=== PATIENT | male | born 1985 | race Caucasian/White ===

== ENCOUNTER 2016-11-26 12:20 | Inpatient (IN) | payer BC ==
[~2016-11-26] VITALS: Ht 185.4 cm; Wt 84.0 kg
[2016-11-26] VITALS (15 sets, daily range): BP systolic 101–142; BP diastolic 63–90; PULSE 54–78; RESP 14–24; Ht 185.4 cm; Wt 84.0 kg
--- NOTE | 2016-11-26 08:29 | HP ---
Date/Time of Note Date/Time of Note DATE: 11/26/16 TIME: 08:19 Assessment/Plan VTE Prophylaxis VTE Prophylaxis Intervention: SCD's Assessment/Plan Chief Complaint/Hosp Course Rectal cancer Ileostomy Problems: Assessment/Plan Mr. Vasquez is a 31 y/o with a history of rectal cancer, s/p chemotherapy/ radiation therapy, and surgical resection who presents to [facility] today to have his ileostomy reversed. Informed consent obtained. HPI/ROS Admit Date/Time Admit Date/Time 11/26/16 Hx of Present Illness Mr. Vasquez is a 31 y/o who was diagnosed with rectal cancer in April of 2015. He subsequently underwent neoadjuvant chemotherapy and radiation that was completed in July of 2015. Then, on 12/02/2015, he underwent a low anterior resection of his rectum with a primary colo-rectal anastomosis and diverting loop ileostomy. Subsequent to this, he underwent adjuvant chemotherapy. Following his surgery a year ago, he has had several bouts of small bowel obstructions all of which resolved without surgical intervention. He has now completed chemotherapy and he presents to have his diverting ileostomy closed. ROS Constitutional: improved, no complaints Eyes: no complaints ENT: no complaints Respiratory: no complaints Cardiovascular: no complaints Gastrointestinal: no complaints Genitourinary: no complaints Musculoskeletal: no complaints Skin: no complaints Neurologic: no complaints Endocrine: no complaints Lymphatic: no complaints Psychological: nl mood/affect, no complaints Immunologic: no complaints PMH/Family/Social Past Medical History Medical History: other (rectal cancer) Past Surgical History Past Surgical Hx: other (see HPI) Family History Significant Family History: no pertinent family hx Social History with 3 children Alcohol Use: none Smoking Status: Former smoker Drug Use: none Exam/Review of Systems Exam Constitutional: alert, oriented, well developed Psych: nl mood/affect, no complaints Head: atraumatic, normocephalic Eyes: EOMI, PERRL, nl conjunctiva, nl sclera ENMT: mucosa pink and moist, nl external ears & nose, nl lips & teeth, nl nasal mucosa & septum Neck: non-tender, supple Respiratory: clear to auscultation, normal air movement Cardiovascular: nl pulses, regular rate and rhythm Gastrointestinal: nl liver, spleen, non-tender, other (RLQ ileostomy), soft, surgical scars (Pfannenstiel incision is well healed, no hernia) Musculoskeletal: nl extremities to inspection Extremities: normal pulses 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
[~2016-11-26 12:20] MED LIST: CEFAZOLIN 1 GM INJ ONE; DOCU-144 PO; FER325 PO; PERCOCET PO; metroNIDAZOLE 500 MG/100 ML NS IVPB ONE
[2016-11-26] MEDS ORDERED: MIDAZOLAM 1 MG/ML 2 ML INJ ONE (13:13)
[2016-11-26] MEDS ORDERED: LIDOCAINE 2% (SDV) 5 ML INJ ONE (13:13)
[2016-11-26] MEDS ORDERED: PROPOFOL 20 ML ONE (13:13)
[2016-11-26] MEDS ORDERED: ROCURONIUM 50 MG INJ ONE (13:13)
[2016-11-26] MEDS ORDERED: GLYCOPYRROLATE 0.4 MG INJ ONE (13:13)
[2016-11-26] MEDS ORDERED: NEOSTIGMINE 3 MG/3 ML SYRINGE ONE (13:13)
[2016-11-26] MEDS ORDERED: FENTAnyl 50 MCG/ML VIAL ONE ×2 (13:13→16:03)
[2016-11-26] MEDS ORDERED: CEFAZOLIN 2 GM/50 ML (PMX) 50 ML IVPB SCH (14:00)
[2016-11-26] MEDS ORDERED: Metronidazole 500 MG in NS 100 ML IVPB SCH (14:00)
[2016-11-26] MEDS ORDERED: OXYCODONE/ACETAMINOPHEN (5/325) TAB PO PRN ×2 (15:30)
[2016-11-26] MEDS ORDERED: EPHEDrine SULFATE 50 MG/5 ML SYG IV PRN (15:30)
[2016-11-26] MEDS ORDERED: HYDROmorphONE (0.2 MG/ML) 10ML SYG IV PRN ×3 (15:30)
[2016-11-26] MEDS ORDERED: MEPERIDINE 25 MG INJ IV PRN (15:30)
[2016-11-26] MEDS ORDERED: METOCLOPRAMIDE 10 MG INJ IV PRN (15:30)
[2016-11-26] MEDS ORDERED: DIPHENHYDRAMINE 50 MG INJ IV PRN (15:30)
[2016-11-26] MEDS ORDERED: ONDANSETRON 4 MG INJ IV PRN ×2 (15:30→17:00)
[2016-11-26] MEDS ORDERED: DEXAMETHASONE 4 MG/ML 1 ML INJ ONE (16:04)
[2016-11-26] MEDS ORDERED: LIDOCAINE 1% (MPF) 30 ML INJ ONE (16:13)
[2016-11-26] MEDS ORDERED: BUPIVACAINE 0.5%/EPI (SDV) 30 ML INJ ONE (16:13)
--- NOTE | 2016-11-26 16:44 | OPR ---
Date/Time of Note Date/Time of Note DATE: 11/26/16 TIME: 16:38 Operative Report Procedure Date: Nov 26, 2016 Preoperative Diagnosis Rectal cancer, Ileostomy Postoperative Diagnosis (same) Operation Performed Ileostomy closure Surgeon: ALESSIA PAIZ MD Co-Surgeon: RASHEEDA SANCHEZ M.D. Anesthesia: general Anesthesiologist: GLENDY ALCANTAR Estimated Blood Loss: 0 - 10 ml's Specimens Ileostomy Complications: None Complications None Pt Condition Post Procedure: stable Disposition: PACU Operative\Procedure Findings RLQ loop ileostomy ALESSIA PAIZ MD Nov 26, 2016 16:44
[2016-11-26] MEDS ORDERED: ACETAMINOPHEN 1000MG/100ML IV 100 ML IVPB SCH (17:00)
[2016-11-26] MEDS ORDERED: KETOROLAC 30 MG INJ IV SCH (17:00)
[2016-11-26] MEDS ORDERED: CEFTRIAXONE 1 GM/50 ML (PMX) 50 ML IVPB SCH ×2 (17:00→21:00)
[2016-11-26 17:09] LABS: ADD SCAN DIFF NO
[2016-11-26 17:11] LABS: BASOPHILS % 0.2 % (0.0-2.0); EOSINOPHILS # 0.1 10^3/ul (0.0-0.5); EOSINOPHILS % 1.9 % (0.0-7.0); HEMATOCRIT 41.5 % (42.0-52.0); HEMOGLOBIN 13.6 g/dl (14.0-18.0); LYMPHOCYTES # 0.9 10^3/ul (0.8-2.9); LYMPHOCYTES % 14.9 % (15.0-51.0); MEAN CORPUSCULAR HEMOGLOBIN 29.8 pg (29.0-33.0); MEAN CORPUSCULAR HGB CONC 32.8 g/dl (32.0-37.0); MEAN CORPUSCULAR VOLUME 90.8 fl (82.0-101.0); MEAN PLATELET VOLUME 10.1 fl (7.4-10.4); MONOCYTE # 0.3 10^3/ul (0.3-0.9); MONOCYTES % 4.3 % (0.0-11.0); NEUTROPHIL # 4.9 10^3/ul (1.6-7.5); NEUTROPHILS % 78.5 % (39.0-77.0); PLATELET COUNT 154 10^3/UL (140-415); RED BLOOD COUNT 4.57 10^6/ul (4.70-6.10); RED CELL DISTRIBUTION WIDTH 12.5 % (11.5-14.5); WHITE BLOOD COUNT 6.2 10^3/ul (4.8-10.8)
[2016-11-26 17:31] LABS: CREATININE 1.04 mg/dl (0.61-1.24)
[2016-11-26 17:33] LABS: CALCIUM 8.4 mg/dl (8.4-10.2); POTASSIUM 3.3 mmol/L (3.5-5.1)
[2016-11-26] MEDS: HYDROmorphONE 1 MG/ML SYG IV PRN (19:10)
--- NOTE | 2016-11-26 19:17 | OPR ---
DATE OF OPERATION: 11/26/2016 PREOPERATIVE DIAGNOSES: 1. Rectal cancer. 2. Ileostomy. POSTOPERATIVE DIAGNOSES: 1. Rectal cancer. 2. Ileostomy. OPERATION PERFORMED: Ileostomy closure with resection and anastomosis. SURGEON: Dr. Alessia Cool MD POWDER SHOVELER: Stew Hartmann MD; ANESTHESIOLOGIST: Nancy Vasqeuz CRNA INDICATIONS FOR PROCEDURE: Mr. Vasquez is a 31-year-old gentleman who was diagnosed with rectal cancer in 2014. He subsequently underwent neoadjuvant chemotherapy and radiation, and then in November 2015, he underwent a low anterior resection of his rectum with primary colorectal anastomosis and diverting ileostomy. He subsequently underwent adjuvant chemotherapy and he now presents for ileostomy closure. Prior to his surgery, he underwent a Gastrografin enema , which revealed a patent and nonleaking colorectal anastomosis. Informed consent was obtained prior to the procedure. PROCEDURE IN DETAIL: The patient was brought to the operating room and placed in the supine position on the operating table. Next, after successful administration of general endotracheal anesthesia, the patient's right lower quadrant ileostomy appliance was removed and the proximal limb of bowel was closed using a running 2-0 silk suture. Next, the patient's anterior abdominal wall was prepped and draped in the usual sterile fashion. Following a surgical timeout, as well as administration of perioperative antibiotics, a circular incision was made at the mucocutaneous junction around the right lower quadrant ileostomy. Next, the 2 limbs of bowel were then carefully mobilized from the subcutaneous tissues using sharp dissection, and then they were freed from the anterior and posterior rectus sheath. Once this was done, healthy limbs of proximal and distal ileum were easily passed through this former right lower quadrant ileostomy site. Next, 2 sterile towels were used to drape the abdomen and the mesentery between both points, at the desired location to create the enteroenterostomy, was divided using the LigaSure tissue sealing device. At this location on each of the proximal and distal limbs of bowel, an enterotomy was created, and a 75-mm MARAL stapler was utilized to create a [id number] anastomosis between the antimesenteric borders of the proximal and distal limbs of ileum. Next, the ileostomy was resected and the enterotomy was closed another firing of the 75- mm GI stapler. Prior to doing so, however, empty ring forceps were utilized to examine the anastomosis internally and this was found to have healthy mucosa up to, and including, the anastomosis and no active bleeding. Once a second firing of the MARAL stapler was complete, the ileostomy was passed off the surgical as a surgical specimen and labeled "ileostomy." Next, the closed ileum was then dropped into the patient's abdomen, through the opening in the abdominal wall, and we proceeded to close the abdominal wall. This was done by closing both the anterior and posterior rectus sheaths, using interrupted 0 Vicryl sutures. The posterior rectus sheath was closed longitudinally, while the anterior rectus sheath was closed transversely. Next, the subcutaneous tissues were reapproximated using interrupted 2-0 Vicryl suture, the skin edges were reapproximated using a running 4-0 Monocryl stitch, and then Dermabond skin adhesive. Now, the procedure was complete, all needle, sponge and instrument counts were correct, and the patient was awoken from anesthetic. He was extubated in the operating room without complication, transferred to the recovery room in stable condition. By the completion of the procedure, the patient received 500 mL crystalloid. ESTIMATED BLOOD LOSS: 10 mL. COMPLICATIONS: None. Dictated By: ALESSIA MIRANDA/DARLEEN Conf#: [id number] DID#: [id number] PETR
[2016-11-26] MEDS: FAMOTIDINE 20 MG INJ IV SCH (21:14)
[2016-11-26] MEDS: D5-NS + KCL 20 MEQ 1,000 ML IV SCH (21:14)
[2016-11-26] MEDS: KETOROLAC 30 MG INJ IV SCH (21:14)
[2016-11-26] MEDS: metroNIDAZOLE 500 MG/NS (PMX) 100 ML IVPB SCH (22:22)
[2016-11-26] MEDS: ACETAMINOPHEN 1000MG/100ML IV 100 ML IVPB SCH (23:48)
[2016-11-27] MEDS: D5-NS + KCL 20 MEQ 1,000 ML IV SCH ×3 (00:44→10:19)
[2016-11-27] MEDS: KETOROLAC 30 MG INJ IV SCH ×4 (02:50→20:00)
[2016-11-27] MEDS: ACETAMINOPHEN 1000MG/100ML IV 100 ML IVPB SCH ×4 (05:09→23:00)
[2016-11-27 06:10] LABS: ADD SCAN DIFF NO
[2016-11-27] MEDS: metroNIDAZOLE 500 MG/NS (PMX) 100 ML IVPB SCH ×2 (06:15→14:51)
[2016-11-27] MEDS: ENOXAPARIN 40 MG/0.4 ML SYG SC SCH (06:22)
[2016-11-27 06:37] LABS: CALCIUM 8.1 mg/dl (8.4-10.2); CREATININE 0.96 mg/dl (0.61-1.24); POTASSIUM 3.8 mmol/L (3.5-5.1)
[2016-11-27 06:38] LABS: ABNORMAL IP MESSAGE 1; BASOPHILS % 0.1 % (0.0-2.0); HEMOGLOBIN 12.7 g/dl (14.0-18.0); RED CELL DISTRIBUTION WIDTH 12.1 % (11.5-14.5)
[2016-11-27 06:45] LABS: HEMATOCRIT 37.6 % (42.0-52.0); LYMPHOCYTES # 0.5 10^3/ul (0.8-2.9); LYMPHOCYTES % 6.6 % (15.0-51.0); MEAN CORPUSCULAR HEMOGLOBIN 30.4 pg (29.0-33.0); MEAN CORPUSCULAR HGB CONC 33.8 g/dl (32.0-37.0); MEAN PLATELET VOLUME 10.7 fl (7.4-10.4); MONOCYTE # 0.6 10^3/ul (0.3-0.9); MONOCYTES % 8.4 % (0.0-11.0); NEUTROPHIL # 6.1 10^3/ul (1.6-7.5); NEUTROPHILS % 84.8 % (39.0-77.0); PLATELET COUNT 171 10^3/UL (140-415); RED BLOOD COUNT 4.18 10^6/ul (4.70-6.10); WHITE BLOOD COUNT 7.2 10^3/ul (4.8-10.8)
[2016-11-27 07:21] VITALS: BP 98/56; RESP 18
[2016-11-27] MEDS ORDERED: HYDROCODONE/APAP (5/325) TAB PO PRN (08:00)
--- NOTE | 2016-11-27 08:07 | PN ---
Date/Time of Note Date/Time of Note DATE: 11/27/16 TIME: 08:03 Assessment/Plan VTE Prophylaxis VTE Prophylaxis Intervention: ambulation, LMWH, SCD's Lines/Catheters IV Catheter Type (from Nrsg): Peripheral IV Assessment/Plan Chief Complaint/Hosp Course Rectal cancer Ileostomy Problems: Assessment/Plan Mr. Vasquez is POD#1 s/p ileostomy closure. He is doing well. Awaiting return of bowel function. 1. Encourage ambulation 2. Advance diet as tolerated 3. Continue IV Tylenol/Toradol, add Oxycodone for breakthrough pain 4. Likely discharge home in 1-2 days Subjective 24 Hr Interval Summary Mr. Vasquez reports that he is doing well this morning. He has incisional pain controlled with IV Toradol/Tylenol/Dilaudid. He denies nausea and is tolerating a clear liquid diet. He denies any flatus or BM thus far. Pain Control: well controlled Exam/Review of Systems Vital Signs Vitals Vital Signs Date Time Temp Pulse Resp B/P Pulse Ox O2 Delivery O2 Flow Rate FiO2 11/27/16 07:21 97.8 60 18 98/56 98 11/26/16 17:58 Room Air 11/26/16 17:53 2.0 Intake and Output 11/26/16 11/26/16 11/27/16 15:00 23:00 07:00 Intake Total 550 ml 1600 ml Output Total 20 ml 550 ml Balance 530 ml 1050 ml Exam Constitutional: alert, oriented Gastrointestinal: soft, surgical scars (RLQ incision is healing well), tender ( mild, at RLQ incision) Results Result Diagram: 11/27/16 0540 11/27/16 0540 ALESSIA PAIZ MD Nov 27, 2016 08:07
[2016-11-27] MEDS: FAMOTIDINE 20 MG INJ IV SCH ×2 (08:45→22:28)
[2016-11-27] MEDS: oxyCODONE 5 MG TAB PO PRN (10:20)
[2016-11-27 20:27] VITALS: BP 131/68; RESP 16
[2016-11-28] MEDS: HYDROmorphONE 1 MG/ML SYG IV PRN (00:22)
[2016-11-28] MEDS: D5-NS + KCL 20 MEQ 1,000 ML IV SCH (00:27)
[2016-11-28] MEDS: oxyCODONE 5 MG TAB PO PRN (01:08)
[2016-11-28] MEDS: KETOROLAC 30 MG INJ IV SCH ×3 (02:39→14:00)
[2016-11-28 05:37] LABS: ADD SCAN DIFF NO
[2016-11-28 05:39] LABS: BASOPHILS % 0.2 % (0.0-2.0); EOSINOPHILS # 0.1 10^3/ul (0.0-0.5); EOSINOPHILS % 1.3 % (0.0-7.0); HEMATOCRIT 34.6 % (42.0-52.0); HEMOGLOBIN 11.5 g/dl (14.0-18.0); LYMPHOCYTES # 0.9 10^3/ul (0.8-2.9); LYMPHOCYTES % 19.3 % (15.0-51.0); MEAN CORPUSCULAR HEMOGLOBIN 30.1 pg (29.0-33.0); MEAN CORPUSCULAR HGB CONC 33.2 g/dl (32.0-37.0); MEAN CORPUSCULAR VOLUME 90.6 fl (82.0-101.0); MEAN PLATELET VOLUME 10.7 fl (7.4-10.4); MONOCYTE # 0.5 10^3/ul (0.3-0.9); MONOCYTES % 10.1 % (0.0-11.0); NEUTROPHIL # 3.1 10^3/ul (1.6-7.5); NEUTROPHILS % 69.1 % (39.0-77.0); PLATELET COUNT 137 10^3/UL (140-415); RED BLOOD COUNT 3.82 10^6/ul (4.70-6.10); RED CELL DISTRIBUTION WIDTH 12.3 % (11.5-14.5); WHITE BLOOD COUNT 4.5 10^3/ul (4.8-10.8)
[2016-11-28] MEDS: ACETAMINOPHEN 1000MG/100ML IV 100 ML IVPB SCH (05:42)
[2016-11-28 06:04] LABS: POTASSIUM 3.4 mmol/L (3.5-5.1)
[2016-11-28 06:07] LABS: CREATININE 1.12 mg/dl (0.61-1.24)
[2016-11-28] MEDS: ENOXAPARIN 40 MG/0.4 ML SYG SC SCH (07:34)
[2016-11-28 07:59] VITALS: BP 97/61; RESP 14
[2016-11-28] MEDS: FAMOTIDINE 20 MG INJ IV SCH (08:33)
--- NOTE | 2016-11-28 08:37 | PN ---
Date/Time of Note Date/Time of Note DATE: 11/28/16 TIME: 08:34 Assessment/Plan VTE Prophylaxis VTE Prophylaxis Intervention: ambulation, LMWH, SCD's Lines/Catheters IV Catheter Type (from Nrsg): Peripheral IV Assessment/Plan Assessment/Plan 31YO Man POD2 reversal of DLI doing well. Been OOB, urinating and passing gas. Pain controlled. Tolerating clear. Denies CP/SOB/F/C/NVD. To advance to full liquids, D/C IVF. Pauline and Toradol for pain. Hopeful D/C in AM. Subjective 24 Hr Interval Summary Free Text/Dictation Pt states he's OK. Passing gas, urinating, no BM. Pain controlled, is ambulating. No CP/SOB/F/C/NVD Constitutional: no complaints Respiratory: no complaints Cardiovascular: no complaints Gastrointestinal: pain Exam/Review of Systems Vital Signs Vitals Vital Signs Date Time Temp Pulse Resp B/P Pulse Ox O2 Delivery O2 Flow Rate FiO2 11/28/16 07:59 98.1 60 14 97/61 99 11/26/16 17:58 Room Air 11/26/16 17:53 2.0 Intake and Output 11/27/16 11/27/16 11/28/16 15:00 23:00 07:00 Intake Total 100 ml 1000 ml 400 ml Output Total 240 ml Balance 100 ml 760 ml 400 ml Exam Constitutional: alert, oriented Respiratory: clear to auscultation Cardiovascular: regular rate and rhythm Gastrointestinal: soft, tender (Appropriate at wound, Wound C/D/I) Results Result Diagram: 11/28/16 0445 11/28/16 0445 Results 24 hrs Laboratory Tests Test 11/28/16 04:45 White Blood Count 4.5 #L Red Blood Count 3.82 L Hemoglobin 11.5 L Hematocrit 34.6 L Mean Corpuscular Volume 90.6 Mean Corpuscular Hemoglobin 30.1 Mean Corpuscular Hemoglobin Concent 33.2 Red Cell Distribution Width 12.3 Platelet Count 137 L Mean Platelet Volume 10.7 H Neutrophils % 69.1 Lymphocytes % 19.3 Monocytes % 10.1 Eosinophils % 1.3 Basophils % 0.2 Nucleated Red Blood Cells % 0.0 Neutrophils # 3.1 Lymphocytes # 0.9 Monocytes # 0.5 Eosinophils # 0.1 Basophils # 0.0 Nucleated Red Blood Cells # 0.0 Sodium Level 138 Potassium Level 3.4 L Chloride Level 106 Carbon Dioxide Level 25 Anion Gap 10 Blood Urea Nitrogen 13 Creatinine 1.12 Glucose Level 100 Calcium Level 8.0 L Medications Medications Current Medications Hydromorphone HCl (Dilaudid) 0.5 mg Q2 PRN IV BREAKTHROUGH PAIN Last administered on 11/28/16 00:22; Admin Dose 0.5 MG; Start 11/26/16 at 17:00 Ondansetron HCl (Zofran Inj) 4 mg Q6H PRN IV NAUSEA AND/OR VOMITING; Start at 17:00 Famotidine 20 mg 20 mg Q12 IV Last administered on 11/27/16 22:28; Admin Dose 20 MG; Start 11/26/16 at 21:00 Potassium Chloride/Dextrose/ Sod Cl (D5-NS + KCl 20 Meq) 1,000 ml @ 50 mls/hr Q20H IV Last administered on 11/28/16 00:27; Admin Dose 50 MLS/HR; Start 11/26 at 16:44 Enoxaparin Sodium 40 mg 40 mg DAILY@07 SC Last administered on 11/28/16 07:34 ; Admin Dose 40 MG; Start 11/27/16 at 07:00 Acetaminophen (Ofirmev 1000mg/ 100ml Iv) 100 ml @ 400 mls/hr Q6H IVPB Last administered on 11/28/16 05:42; Admin Dose 400 MLS/HR; Start 11/26/16 at 23:00 Ketorolac Tromethamine (Toradol) 30 mg Q6H IV Last administered on 11/28/16 02 :39; Admin Dose 30 MG; Start 11/26/16 at 20:00; Stop 12/01/16 at 19:59 Oxycodone HCl (Roxicodone) 5 mg Q4H PRN PO BREAKTHROUGH PAIN Last administered on 11/28/16 01:08; Admin Dose 5 MG; Start 11/27/16 at 08:30 RASHEEDA SANCHEZ M.D. Nov 28, 2016 08:37
[2016-11-28] MEDS ORDERED: HYDROCODONE/APAP (5/325) TAB PO PRN ×3 (09:00)
== END 2016-11-28 17:30 | disposition home or self-care (01) | DRG 331 ==
LOC: REC 12:20 → EDSTATUS 14:00 → MS2 18:30
PROVIDERS: ADMIT Colon & Rectal Surgery; ATTEND Colon & Rectal Surgery
PROC: 0DBB0ZZ Excision of Ileum, Open Approach (ICD-10-PCS; principal; 2016-11-26 14:00)
DX: Z43.2 Encounter for attention to ileostomy (principal); Z85.048 Personal history of other malignant neoplasm of rectum, rectosigmoid junction, and anus; Z92.21 Personal history of antineoplastic chemotherapy; Z92.3 Personal history of irradiation
CPT/HCPCS: 80048; 85025; 88307; J0131; J0690; J0696; J1100; J1170; J1200; J1650; J1885; J2175; J2250; J2405; J2710; J3010; J3480

== ENCOUNTER 2016-12-10 06:04 | Inpatient (IN) | payer BC ==
[~2016-12-10] VITALS: Ht 177.8 cm; Wt 78.0 kg
[2016-12-10] MEDS ORDERED: SOD CHLORIDE 0.9% 1,000 ML IV STA (06:22)
[2016-12-10] MEDS ORDERED: morphine 4 MG/ML VIAL IV STA (06:22)
[2016-12-10] MEDS ORDERED: FAMOTIDINE 20 MG INJ IV STA (06:22)
[2016-12-10] MEDS ORDERED: ONDANSETRON 4 MG INJ IV STA (06:22)
[2016-12-10] MEDS ORDERED: HYDROmorphONE 1 MG/ML SYG IV STA ×2 (06:57→08:04)
[2016-12-10 07:00] LABS: ADD SCAN DIFF NO
[2016-12-10] MEDS ORDERED: SOD CHLORIDE 0.9% 100 ML ONE (07:01)
[2016-12-10] MEDS ORDERED: IOHEXOL 300MG/ML 150 ML BTL ONE (07:01)
[2016-12-10 07:14] LABS: BASOPHILS % 0.1 % (0.0-2.0); EOSINOPHILS % 0.2 % (0.0-7.0); HEMATOCRIT 44.5 % (42.0-52.0); HEMOGLOBIN 14.9 g/dl (14.0-18.0); LYMPHOCYTES # 0.7 10^3/ul (0.8-2.9); MEAN CORPUSCULAR HEMOGLOBIN 29.4 pg (29.0-33.0); MEAN CORPUSCULAR HGB CONC 33.5 g/dl (32.0-37.0); MEAN CORPUSCULAR VOLUME 87.9 fl (82.0-101.0); MEAN PLATELET VOLUME 10.3 fl (7.4-10.4); MONOCYTE # 0.5 10^3/ul (0.3-0.9); MONOCYTES % 3.6 % (0.0-11.0); NEUTROPHIL # 12.3 10^3/ul (1.6-7.5); NEUTROPHILS % 90.7 % (39.0-77.0); PLATELET COUNT 249 10^3/UL (140-415); RED BLOOD COUNT 5.06 10^6/ul (4.70-6.10); RED CELL DISTRIBUTION WIDTH 12.5 % (11.5-14.5); WHITE BLOOD COUNT 13.5 10^3/ul (4.8-10.8)
[2016-12-10 07:21] LABS: INR 0.96; PROTIME 12.8 Sec (12.2-14.2)
[2016-12-10 07:22] LABS: PARTIAL THROMBOPLASTIN TIME 25.2 Sec (25.0-35.0)
[2016-12-10 07:27] LABS: ALANINE AMINOTRANSFERASE 32 IU/L (13-69); ALBUMIN 4.6 g/dl (3.3-4.9); ALBUMIN/GLOBULIN RATIO 1.27; ALKALINE PHOSPHATASE 89 IU/L (42-121); ANION GAP 15 (8-16); ASPARTATE AMINO TRANSFERASE 22 IU/L (15-46); BLOOD UREA NITROGEN 25 mg/dl (7-20); CALCIUM 9.9 mg/dl (8.4-10.2); CARBON DIOXIDE 20 mmol/L (21-31); CHLORIDE 105 mmol/L (97-110); CREATININE 1.13 mg/dl (0.61-1.24); GLUCOSE 168 mg/dl (70-220); POTASSIUM 3.2 mmol/L (3.5-5.1); SODIUM 137 mmol/L (135-144); TOTAL PROTEIN 8.2 g/dl (6.1-8.1)
--- NOTE | 2016-12-10 07:34 | RADRPT ---
PROCEDURE: CT Abdomen and Pelvis with contrast. CLINICAL INDICATION: Abdominal pain TECHNIQUE: CT scan of the abdomen and pelvis with contrast was performed utilizing axial tomograph ic images from the domes the diaphragm to the symphysis pubis. The patient was scanned post uncomp licated intravenous administration of 100 cc of Omnipaque-300. Coronal and sagittal reformatted tono ges were obtained from the axial source images. Images were reviewed on a high-resolution PACS works tation. One or more of the following dose reduction techniques were used: Automated exposure control, Adjust ment of the mA and/or kV according to patient size, and/or Use of iterative reconstruction technique . The total exam CTDI equals 9.75 mGy and the total exam DLP equals 606.68 mGy-cm. COMPARISON: CT abdomen and pelvis dated 07/19/2016 FINDINGS: The lung bases are clear . The liver is normal in size and contour. No focal intrahepatic masses are identified. There is no intra or extrahepatic biliary dilatation. The gallbladder is unremark able by CT criteria. The spleen, pancreas, and adrenal glands are unremarkable. The kidneys are symmetric in size and demonstrate normal enhancement. No hydronephrosis or hydroure ter is identified. No renal parenchymal mass is identified. The urinary bladder is unremarkable. There has been interval reversal of a right lower quadrant stoma. There are multiple mildly distende d fluid-filled loops of small bowel with narrowing of the distal ileum at the previous anastomosis s ite. There is fecalization of a loop of bowel just proximal to the anastomosis. Additional anastom otic suture material is seen at the anorectal junction. There is small free fluid in the pelvis. No intraperitoneal free air or abscess identified. No retroperitoneal, mesenteric, or inguinal adenopa thy is identified. The abdominal aorta and major branching vessels are normal in caliber. The osseous structures are u nremarkable. No significant subcutaneous soft tissue abnormality is identified. IMPRESSION: 1. Postsurgical changes from prior small bowel and colonic resection. There are multiple mildly dis tended fluid-filled loops of small bowel with narrowing of the distal ileum at the site of previous resection. There is fecalization of the small bowel loop just proximal to the anastomosis. Finding s are concerning for at least partial small bowel obstruction. 2. Small free fluid in the pelvis. 3. Interval reversal of right lower quadrant stoma. RPTAT: .Kristin Sparks MD, MD Date Time Electronically viewed and signed by .Kristin Sparks MD, MD on 12/10/2016 07:34 .G/
[2016-12-10 07:47] LABS: TROPONIN-I < 0.012 ng/ml (0.00-0.12)
[2016-12-10] MEDS ORDERED: POTASSIUM CHLORIDE 250 ML IVPB ONE (08:00)
[2016-12-10] MEDS ORDERED: PIPER-TAZO 3.375 GM IV (PMX) 100 ML IVPB STA (08:06)
[2016-12-10] MEDS ORDERED: metroNIDAZOLE 500 MG/NS (PMX) 100 ML IVPB STA (08:06)
[2016-12-10] MEDS ORDERED: SODIUM CHLORIDE 0.9% 1L BAG IV* STA (08:06)
--- NOTE | 2016-12-10 08:13 | ERA ---
ER Documentation Chief Complaint Date/Time DATE: 12/10/16 TIME: 08:08 Chief Complaint sp closure o colostomy 2 weeks ago, c/ abd pain, hx colon ca HPI This is a 31-year-old male who presents to the emergency room for evaluation of abdominal pain. This patient does have a history of colon cancer with previous resection, diverting loop ileostomy. This patient had a reanastomosis of his ileostomy done approximately 2 weeks ago by his general surgeon, Dr. Cool. He presents today for evaluation of abdominal pain which is been present for the past 2 hours. Patient localizes the pain over the incision site of his reanastomosis. He states he has been vomiting multiple times and states that his vomit was initially green in color. ROS All systems reviewed and are negative except as per history of present illness. Medications Home Meds No Active Prescriptions or Reported Meds Allergies Allergies: Coded Allergies: No Known Allergy (Unverified , 11/26/16) PMhx/Soc History of Surgery: Yes (colon ca resection-colostomy) Anesthesia Reaction: No Hx 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 Disorder: No Hx Respiratory Disorders: No Hx Cardiac Disorders: No Hx Psychiatric Problems: No Hx Miscellaneous Medical Probl: No Hx Alcohol Use: No Hx Substance Use: No Hx Tobacco Use: No Smoking Status: Current every day smoker Physical Exam Vitals Vital Signs Date Time Temp Pulse Resp B/P Pulse Ox O2 Delivery O2 Flow Rate FiO2 12/10/16 06:12 97.8 92 20 113/72 100 Physical Exam INITIAL VITAL SIGNS: Reviewed by me GENERAL: The patient is well developed and appropriate for usual state of health in no apparent distress HEENT: Pupils equal, round, and reactive to light. EOMI. There is no scleral icterus. NECK: C-spine is soft and supple, there is no meningismus. There is no cervical lymphadenopathy. LUNGS: Clear to auscultation bilaterally. There are no rales, wheezes or rhonchi. HEART: Regular rate and rhythm, no murmurs, clicks, rubs or gallops. ABDOMEN: Tender to palpation over the anastomosis incision site in the right lower quadrant. Mild guarding and rebound tenderness. Hyperactive bowel sounds noted in 2/4 quadrants EXTREMITIES: There is no peripheral cyanosis or edema. No focal swelling or erythema. NEUROLOGICAL: The patient moves all four extremities with 5/5 strength. Cranial nerves II - XII are intact. Normal gait. Alert and oriented SKIN: There is no apparent rash or petechiae. HEME/LYMPHATIC: There is no evidence of excessive bruising or lymphedema. PSYCHIATRIC: The patient does not appear anxious or depressed. Result Diagram: 12/10/1630 12/10/16 0630 Results 24 hrs Laboratory Tests Test 12/10/16 06:30 White Blood Count 13.510^3/ul Red Blood Count 5.0610^6/ul Hemoglobin 14.9g/dl Hematocrit 44.5% Mean Corpuscular Volume 87.9fl Mean Corpuscular Hemoglobin 29.4pg Mean Corpuscular Hemoglobin Concent 33.5g/dl Red Cell Distribution Width 12.5% Platelet Count 36350^3/UL Mean Platelet Volume 10.3fl Neutrophils % 90.7% Lymphocytes % 5.0% Monocytes % 3.6% Eosinophils % 0.2% Basophils % 0.1% Nucleated Red Blood Cells % 0.0/100WBC Neutrophils # 12.310^3/ul Lymphocytes # 0.710^3/ul Monocytes # 0.510^3/ul Eosinophils # 0.010^3/ul Basophils # 0.010^3/ul Nucleated Red Blood Cells # 0.010^3/ul Prothrombin Time 12.8Sec Prothrombin Time Ratio 1.0 INR International Normalized Ratio 0.96 Activated Partial Thromboplast Time 25.2Sec Sodium Level 137mmol/L Potassium Level 3.2mmol/L Chloride Level 105mmol/L Carbon Dioxide Level 20mmol/L Anion Gap 15 Blood Urea Nitrogen 25mg/dl Creatinine 1.13mg/dl Glucose Level 168mg/dl Lactic Acid Level 3.6mmol/L Calcium Level 9.9mg/dl Total Bilirubin 1.0mg/dl Direct Bilirubin 0.00mg/dl Indirect Bilirubin 1.0mg/dl Aspartate Amino Transf (AST/SGOT) 22IU/L Alanine Aminotransferase (ALT/SGPT) 32IU/L Alkaline Phosphatase 89IU/L Troponin I < 0.012ng/ml Total Protein 8.2g/dl Albumin 4.6g/dl Globulin 3.60g/dl Albumin/Globulin Ratio 1.27 Lipase 112U/L Current Medications Medications (Trade) Dose Ordered Sig/Jorge Route PRN Reason Start Time Stop Time Status Last Admin Dose Admin Sodium Chloride (NS) 1,000 ml @ 1,000 mls/hr Q1H STAT IV 12/10/16 06:22 12/10/16 07:21 DC 12/10/16 06:38 Morphine Sulfate (morphine) 4 mg ONCE STAT IV 12/10/16 06:22 12/10/16 06:23 DC 12/10/16 06:38 Ondansetron HCl (Zofran Inj) 4 mg ONCE STAT IV 12/10/16 06:22 12/10/16 06:23 DC 12/10/16 06:38 Famotidine (Pepcid Iv) 20 mg ONCE STAT IV 12/10/16 06:22 12/10/16 06:23 DC 12/10/16 06:38 Hydromorphone HCl 1 mg 1 mg ONCE STAT IV 12/10/16 06:57 12/10/16 06:58 DC 12/10/16 07:01 Sodium Chloride (NS) 100 ml @ ud STK-MED ONCE .ROUTE 12/10/16 07:01 12/10/16 07:02 DC 12/10/16 07:17 Iohexol 150 ml 150 ml STK-MED ONCE .ROUTE 12/10/16 07:01 12/10/16 07:02 DC 12/10/16 07:17 Potassium Chloride (KCl 40 MEQ/250 ML NS) 250 ml @ 62.5 mls/hr ONCE ONCE IVPB 12/10/16 08:00 12/10/16 11:59 12/10/16 08:02 Hydromorphone HCl (Dilaudid) 1 mg ONCE STAT IV 12/10/16 08:04 12/10/16 08:05 DC 12/10/16 08:09 Metoclopramide HCl (Reglan) 10 mg ONCE ONCE IV 12/10/16 08:30 12/10/16 08:31 12/10/16 08:08 Sodium Chloride 2420 ml 2,420 ml BOLUS OVER 2 HOURS STAT IV* 12/10/16 08:06 12/10/16 08:08 DC 12/10/16 08:10 Piperacillin Sod/ Tazobactam Sod 100 ml @ 200 mls/hr ONCE STAT IVPB 12/10/16 08:06 12/10/16 08:35 Metronidazole (Flagyl 500 Mg (Pmx)) 100 ml @ 100 mls/hr ONCE STAT IVPB 12/10/16 08:06 12/10/16 09:05 12/10/16 08:17 Procedures/MDM CT abdomen pelvis with IV contrast: 1. Postsurgical changes from prior small bowel and colonic resection. There are multiple mildly distended fluid-filled loops of small bowel with narrowing of the distal ileum at the site of previous resection. There is fecalization of the small bowel loop just proximal to the anastomosis. Findings are concerning for at least partial small bowel obstruction. 2. Small free fluid in the pelvis. 3. Interval reversal of right lower quadrant stoma. This 31-year-old male presents to the emergency room for evaluation of abdominal pain. This patient is approximately 2 weeks postop from a re- anastomosis of his ileostomy. When I evaluated this patient he was tender over his incision site. No signs of hernia were noted. Lab work was obtained including a CAT scan which did confirm my suspicion of bowel obstruction. This patient does have a white count of 14,000, and an increased lactic acid greater than 3. Blood cultures were obtained. This patient was started on Zosyn and Flagyl. He hemodynamically stable at this time, and has a mean arterial pressure greater than 65. He was given greater than 30 cc/kg of IV normal saline. His pain is controlled with Dilaudid, his nausea is controlled with Zofran and Reglan. I have contacted his general surgeon, and spoke with the covering physician Dr. mcmanus who states the patient can be admitted to the hospitalist. This patient had a nasogastric tube placed, he will be kept n.p.o. Potassium supplementation via IV. This patient will be admitted under the care of Dr. Chowdhury Critical Care: Time: 33 minutes Treatments/Evaluations: Close monitoring and treatment of unstable vital signs, cardiorespiratory, and neurologic status, while maintaining tight balance of fluid, respiratory, and cardiac interventions. Departure Diagnosis: Primary Impression: Small bowel obstruction Additional Impressions: SIRS (systemic inflammatory response syndrome) Hypokalemia Condition: KARINA Ortega DO Dec 10, 2016 08:13
[2016-12-10] MEDS ORDERED: DEXTROSE 5%-0.45% NACL 1,000 ML IV SCH (08:24)
[2016-12-10] MEDS ORDERED: METOCLOPRAMIDE 10 MG INJ IV ONE (08:30)
[2016-12-10] MEDS ORDERED: ACETAMINOPHEN 325 MG TAB PO PRN ×2 (08:30→09:30)
[2016-12-10] MEDS ORDERED: BISACODYL (EC) 5 MG TAB PO PRN (09:30)
[2016-12-10] MEDS ORDERED: ACETAMINOPHEN 650 MG SUPP PR PRN (09:30)
[2016-12-10] MEDS ORDERED: ONDANSETRON 4 MG INJ IV PRN (09:30)
[2016-12-10] MEDS ORDERED: morphine 2 MG INJ IV PRN (09:30)
[2016-12-10] MEDS ORDERED: METOCLOPRAMIDE 10 MG INJ IV PRN (09:30)
[2016-12-10] MEDS ORDERED: NACL 0.9% 3 ML SYG IV SCH (09:30)
[2016-12-10] MEDS ORDERED: DOCUSATE SODIUM 100 MG CAP PO PRN (09:30)
[2016-12-10] MEDS: LEVOFLOXACIN 500MG/D5W (PMX) 100 ML IVPB SCH (11:36)
[2016-12-10] MEDS: D5W-0.45 NACL + KCL 20 MEQ 1,000 ML IV SCH ×2 (12:10→22:36)
[2016-12-10] MEDS: metroNIDAZOLE 500 MG/NS (PMX) 100 ML IVPB SCH ×2 (14:28→22:37)
--- NOTE | 2016-12-10 14:44 | CONS ---
Date/Time of Note Date/Time of Note DATE: 12/10/16 TIME: 14:43 Assessment/Plan Assessment/Plan Chief Complaint/Hosp Course Mr. Vasquez is 2 weeks s/p closure of his ileostomy and he presents with 3 days of constipation and 1/2 day of abdominal pain, nausea and vomiting. He underwent a CT scan which is suspicious for an early SBO with the transition point at his ileo-ileostomy. Recommendations: 1. Admit for IVF, NPO, NGT 2. Recommend discontinuing antibiotics (no role in small bowel obstruction) 3. Patient to ambulate and move around as much has tolerated. Thank you for including me in the care of Mr. Vasquez. I will continue to follow him closely while hospitalized. Problems: Consultation Date/Type/Reason Admit Date/Time Date of Consultation: Dec 10, 2016 Type of Consultation: Colorectal Surgery Reason for Consultation Abdominal pain, small bowel obstruction Hx of Present Illness Mr. Vasquez is a 31 y/o with a history of rectal cancer s/p neoadjuvant chemotherapy/XRT, s/p low anterior resection with diverting loop ileostomy who is now 2 week s/p closure of his loop ileostomy. He did well after this surgery , but starting 3 days ago he began having "constipation" which he describes as having no significant bowel movements. Then, starting at 3 am this morning, he began having abdominal pains, nausea and vomiting. This was very similar to his previous episodes of small bowel obstruction. Previously, these episodes would resolve with conservative management. He currently reports nausea despite having a NGT in place. Constitutional: no complaints Eyes: no complaints ENT: no complaints Respiratory: no complaints Cardiovascular: no complaints Gastrointestinal: nausea, pain, vomiting Genitourinary: no complaints Musculoskeletal: no complaints Skin: no complaints Neurologic: no complaints Endocrine: no complaints Lymphatic: no complaints Psychological: nl mood/affect, no complaints Immunologic: no complaints Past Medical History Medical History: other (rectal cancer) Past Surgical History See HPI Past Surgical Hx: other Family History Significant Family History: no pertinent family hx Social History Alcohol Use: rarely Smoking Status: Current every day smoker Drug Use: none Exam/Review of Systems Vital Signs Vitals Vital Signs Date Time Temp Pulse Resp B/P Pulse Ox O2 Delivery O2 Flow Rate FiO2 12/10/16 06:12 97.8 92 20 113/72 100 Exam Constitutional: alert, oriented, well developed Psych: nl mood/affect, no complaints Head: atraumatic, normocephalic Eyes: EOMI, nl conjunctiva ENMT: nl external ears & nose, nl lips & teeth Neck: non-tender, supple Respiratory: clear to auscultation, normal air movement Cardiovascular: regular rate and rhythm Gastrointestinal: non-tender, soft, surgical scars (RLQ ileostomy closure site is healing well, no s/s of infection, no hernia) Musculoskeletal: nl extremities to inspection Extremities: normal pulses 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: 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 intact, nl mental status Results Result Diagram: 12/10/1662912/10/16629 Results 24 hrs Laboratory Tests Test 12/10/16 06:30 12/10/16 08:37 12/10/16 10:50 White Blood Count 13.5 #H Red Blood Count 5.06 # Hemoglobin 14.9 # Hematocrit 44.5 # Mean Corpuscular Volume 87.9 Mean Corpuscular Hemoglobin 29.4 Mean Corpuscular Hemoglobin Concent 33.5 Red Cell Distribution Width 12.5 Platelet Count 249 # Mean Platelet Volume 10.3 Neutrophils % 90.7 H Lymphocytes % 5.0 L Monocytes % 3.6 Eosinophils % 0.2 Basophils % 0.1 Nucleated Red Blood Cells % 0.0 Neutrophils # 12.3 H Lymphocytes # 0.7 L Monocytes # 0.5 Eosinophils # 0.0 Basophils # 0.0 Nucleated Red Blood Cells # 0.0 Prothrombin Time 12.8 Prothrombin Time Ratio 1.0 INR International Normalized Ratio 0.96 Activated Partial Thromboplast Time 25.2 Sodium Level 137 Potassium Level 3.2 L Chloride Level 105 Carbon Dioxide Level 20 L Anion Gap 15 Blood Urea Nitrogen 25 H Creatinine 1.13 Glucose Level 168 Lactic Acid Level 3.6 H 1.5 1.9 Calcium Level 9.9 Total Bilirubin 1.0 Direct Bilirubin 0.00 Indirect Bilirubin 1.0 Aspartate Amino Transf (AST/SGOT) 22 Alanine Aminotransferase (ALT/SGPT) 32 Alkaline Phosphatase 89 Troponin I < 0.012 Total Protein 8.2 H Albumin 4.6 Globulin 3.60 H Albumin/Globulin Ratio 1.27 Lipase 112 Medications Medications Current Medications Dextrose/Sodium Chloride 1,000 ml @ 80 mls/hr [id number] IV Last administered on 12/10/16 09:58; Admin Dose 80 MLS/HR; Start 12/10/16 at 08:24; Stop 12/10/16 at 20:53 Potassium Chloride/Dextrose/ Sod Cl (D5-1/2ns + KCl 20 Meq) 1,000 ml @ 75 mls/ hr [id number] IV Last administered on 12/10/16 12:10; Admin Dose 75 MLS/HR; Start 12/10/16 at 09:16 Ondansetron HCl (Zofran Inj) 4 mg Q6H PRN IV NAUSEA AND/OR VOMITING; Start at 09:30 Acetaminophen (Tylenol Tab) 650 mg Q6H PRN PO PAIN LEVEL 1-3 OR FEVER; Start at 09:30 Acetaminophen (Tylenol Supp) 650 mg Q6H PRN [place] PAIN LEVEL 1-3 OR FEVER; Start 12/10/16 at 09:30 Docusate Sodium (Colace) 100 mg Q12H PRN PO CONSTIPATION; Start 12/10/16 at 09: 30 Bisacodyl (Dulcolax) 5 mg DAILY PRN PO CONSTIPATION; Start 12/10/16 at 09:30 Pantoprazole (Protonix Iv) 40 mg DAILY@06 IV ; Start 12/11/16 at 06:00 Morphine Sulfate (morphine) 1 mg Q3H PRN IV PAIN LEVEL 1-3; Start 12/10/16 at 09:30 Morphine Sulfate (morphine) 2 mg Q3H PRN IV PAIN LEVEL 4-7; Start 12/10/16 at 09:30 Metoclopramide HCl 5 mg 5 mg Q6H PRN IV CONSTIPATION; Start 12/10/16 at 09:30 Levofloxacin/ Dextrose 100 ml @ 100 mls/hr Q24H IVPB Last administered on 12/10 11:36; Admin Dose 100 MLS/HR; Start 12/10/16 at 09:30 Metronidazole (Flagyl 500 Mg (Pmx)) 100 ml @ 100 mls/hr Q8 IVPB Last administered on 12/10/16 14:28; Admin Dose 100 MLS/HR; Start 12/10/16 at 14:00 ALESSIA PAIZ MD Dec 10, 2016 14:44
[2016-12-10] MEDS: morphine 2 MG INJ IV PRN ×3 (14:49→22:47)
--- NOTE | 2016-12-10 17:40 | HP ---
DATE OF ADMISSION: 12/10/2016 CONSULTANTS: 1. Dr. Cool, colorectal surgeon. 2. Dr. Faye, rattle leak and squeak repairer. CHIEF COMPLAINT: Abdominal pain. HISTORY OF PRESENT ILLNESS: This is a very pleasant 31-year-old gentleman with past medical history of rectal cancer in 2014, status post laparoscopic assisted low anterior resection of the rectum wi th primary anastomosis, diverting ileostomy, status post chemotherapy who on 11/26/2016 had the ileo stomy closer with resection and anastomosis by Dr. Gabriel Cool and has been doing pretty well up to date. The patient has presented to [facility] having 1 day of abdominal pain ac companied with nausea and vomiting with worsening of the symptoms for the past 2 hours. The patient has been having localized pain over the incision site and his anastomosis, has also been vomiting m ultiple times and his vomit was a green color. Upon arrival to the emergency room, CT of the abdome n and pelvis was obtained which showed postsurgical changes from prior study. From prior small aby l and colonic resection, there is multiple mildly distended fluid-filled loop of small bowel with na rrowing of the distal ileum at the site of the previous resection. There is fecalization of the sma ll bowel loop just proximal to the anastomosis. These findings are concerning for at least partial small-bowel obstruction. Small free fluid in pelvis, interval reversal of the right lower quadrant stoma. NG tube was placed and status post NG-tube, patient had an episode of bowel movement in the course of the emergency room. Patient also received Pepcid, Zofran, morphine, normal saline, potass ium chloride and Zosyn in the course of the emergency room. At this time, the patient complains of having abdominal discomfort which has been mildly improving since his arrival to ER. PAST MEDICAL AND SURGICAL HISTORY: As above per HPI. MEDICATIONS: None. SOCIAL HISTORY: Negative x3 for smoking, alcohol, illicit drugs. FAMILY HISTORY: Mother had throat cancer. REVIEW OF SYSTEMS: As above per HPI, otherwise 12 systems were found to be negative. The patient h as been having poor p.o. intake. No change in visual acuity, diplopia, photophobia. No shortness o f breath. No chest pain. Positive for nausea, vomiting, abdominal pain. No dysuria, hematuria, ur gency, incontinence. No back pain, neck pain, restricted range of motion. No rash or itchiness, no motor or sensory deficit, no bleeding or bruises. PHYSICAL EXAMINATION: VITAL SIGNS: Temperature 97.8, pulse 78, respiration 18, blood pressure 106/74, oxygen 99% in room air. GENERAL APPEARANCE: The patient is lying in bed comfortably. EYES AND ENT: Conjunctivae and lids. Pupils are normal. Extraocular muscles normal. Hearing gross ly normal. Lips are normal. Oral mucosa is moist. NECK: Supple. Trachea is midline. No lymphadenopathy. RESPIRATORY: Effort is normal. Clear to auscultation bilaterally. CARDIOVASCULAR: Normal S1, S2. Regular rhythm and rate. No murmur, no bruits, no edema. Peripher al pulses, radial pulses palpable. Cap refill is normal. CHEST: Normal expansion of thorax during inspiration. GASTROINTESTINAL: Abdomen is soft, mildly tender at the surgical site. No guarding, no rebound. GENITOURINARY: Deferred. MUSCULOSKELETAL: Upper and lower extremities within normal limits. Full range of motion, strength 5/5 in both upper and lower extremities. NEUROLOGIC: Cranial nerves II through XII are grossly intact. PSYCHIATRIC: Normal judgment and insight. Alert and oriented x3. Mood and affect is normal. LABORATORY WORK AND IMAGING: WBC 13.5, hemoglobin 14.9, hematocrit 44.5, platelets 249. Sodium 137 , potassium 3.2, chloride 100, bicarbonate 20, BUN 25, creatinine 1.13, glucose 168, lactic acid 3.6 1, , calcium 9.9. LFTs all within normal limits. ASSESSMENT AND PLAN: 1. Partial small-bowel obstruction with a history of rectal cancer surgical intervention, status po st reversal of ileostomy. The patient had been placed n.p.o. NG tube in place. Has episodes of winsome wel movement. Will follow up colorectal surgeon recommendation. The patient recommended to have [facility] GI series tomorrow. 2. Dehydration, likely secondary to nausea and vomiting and decreased p.o. intake. The patient has been placed on IV fluid. Follow up renal panel. 3. Hyperkalemia secondary to recurrent vomiting. He has been repleted. 4. Sepsis, likely reactive secondary to intractable nausea, vomiting. The patient has been placed on Zosyn. At this time we will place the patient on Flagyl and Levaquin. Continue IV fluid. 5. For deep venous thrombosis prophylaxis, on sequential compression devices. 6. For gastrointestinal prophylaxis, on Protonix. 7. We will continue to monitor patient closely. Further recommendations, management and treatment as per clinical course. Dictated By: GAUDENCIO CARMONA/DARLEEN Conf#: [id number] DID#: [id number]
--- NOTE | 2016-12-10 17:43 | CONS ---
Date/Time of Note Date/Time of Note DATE: 12/10/16 TIME: 17:16 Assessment/Plan Assessment/Plan Additional Assessment/Plan Assessment * Abdominal pain Small bowel obstruction(partial) S/P ileostomy reversal S/P Low anterior resection with ileostomy Rectal cancer Plan * continue present management * correct hypokalemia * adequate hydration Consultation Date/Type/Reason Admit Date/Time Date of Consultation: Dec 10, 2016 Type of Consultation: Gastroenterology Reason for Consultation hx of rectal cancer/small bowel obstruction Referring Provider: GAUDENCIO HIDALGO MD Hx of Present Illness 31 year old male who came with chief complaint of abdominal pain.Past medical history of rectal cancer,s/p low anterior resection with diverting loop ileostomy.Patient had ileostomy reversed 2 weeks ago and was discharged improved.3 days prior to consult ,he had difficulty of passing bowel with associated abdominal distention .1 day prior to admission ,he complained of colicky abdominal pain with associated nausea and vomiting..He claims pain is localized at the incision site ,and denies any fever or chills. Emergency room course revealed elevated wbc 13.5 with predominant neutrophils,K 3.2.CT abdomen and pelvis revealed Postsurgical changes from prior small bowel and colonic resection. There are multiple mildly distended fluid-filled loops of small bowel with narrowing of the distal ileum at the site of previous resection. There is fecalization of the small bowel loop just proximal to the anastomosis. Findings are concerning for at least partial small bowel obstruction. . Small free fluid in the pelvis.. Interval reversal of right lower quadrant stoma. Subsequent examination ,NGT connected intermittent suction with greenish to brown liquid noted, had 2 episodes of bowel movement watery,no blood.noted.He claimed slight relief of abdominal pain. Constitutional: no complaints Eyes: no complaints ENT: no complaints Respiratory: no complaints Cardiovascular: no complaints Gastrointestinal: nausea, pain, vomiting Genitourinary: no complaints Musculoskeletal: no complaints Skin: no complaints Neurologic: no complaints Endocrine: no complaints Lymphatic: no complaints Psychological: nl mood/affect, no complaints Immunologic: no complaints Past Medical History Medical History: other (rectal cancer) Past Surgical History Past Surgical Hx: other (low anterior resection,ileostomy reversal) Family History Significant Family History: no pertinent family hx Social History Alcohol Use: rarely Smoking Status: Current every day smoker Drug Use: none Exam/Review of Systems Vital Signs Vitals Vital Signs Date Time Temp Pulse Resp B/P Pulse Ox O2 Delivery O2 Flow Rate FiO2 12/10/16 14:30 8 18 106/74 99 Room Air 12/10/16 06:12 97.8 Exam Constitutional: alert, oriented, well developed Psych: nl mood/affect, no complaints Head: atraumatic, normocephalic Eyes: EOMI, PERRL, nl conjunctiva, nl lids, nl sclera ENMT: nl external ears & nose, nl lips & teeth, nl nasal mucosa & septum Neck: non-tender, supple Respiratory: clear to auscultation, normal air movement Cardiovascular: nl pulses, regular rate and rhythm Gastrointestinal: distended, nl liver, spleen, soft, tender, No rebound or guarding Musculoskeletal: nl extremities to inspection, nl gait and stance Extremities: normal pulses 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: 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, nl mental status, nl speech, nl strength Skin: nl turgor, No rash or lesions Lymph: nl lymph nodes Results Result Diagram: 12/10/16 0630 12/10/16 0630 Results 24 hrs Laboratory Tests Test 12/10/16 06:30 12/10/16 08:37 12/10/16 10:50 White Blood Count 13.5 #H Red Blood Count 5.06 # Hemoglobin 14.9 # Hematocrit 44.5 # Mean Corpuscular Volume 87.9 Mean Corpuscular Hemoglobin 29.4 Mean Corpuscular Hemoglobin Concent 33.5 Red Cell Distribution Width 12.5 Platelet Count 249 # Mean Platelet Volume 10.3 Neutrophils % 90.7 H Lymphocytes % 5.0 L Monocytes % 3.6 Eosinophils % 0.2 Basophils % 0.1 Nucleated Red Blood Cells % 0.0 Neutrophils # 12.3 H Lymphocytes # 0.7 L Monocytes # 0.5 Eosinophils # 0.0 Basophils # 0.0 Nucleated Red Blood Cells # 0.0 Prothrombin Time 12.8 Prothrombin Time Ratio 1.0 INR International Normalized Ratio 0.96 Activated Partial Thromboplast Time 25.2 Sodium Level 137 Potassium Level 3.2 L Chloride Level 105 Carbon Dioxide Level 20 L Anion Gap 15 Blood Urea Nitrogen 25 H Creatinine 1.13 Glucose Level 168 Lactic Acid Level 3.6 H 1.5 1.9 Calcium Level 9.9 Total Bilirubin 1.0 Direct Bilirubin 0.00 Indirect Bilirubin 1.0 Aspartate Amino Transf (AST/SGOT) 22 Alanine Aminotransferase (ALT/SGPT) 32 Alkaline Phosphatase 89 Troponin I < 0.012 Total Protein 8.2 H Albumin 4.6 Globulin 3.60 H Albumin/Globulin Ratio 1.27 Lipase 112 Medications Medications Current Medications Potassium Chloride/Dextrose/ Sod Cl (D5-1/2ns + KCl 20 Meq) 1,000 ml @ 75 mls/ hr [id number] IV Last administered on 12/10/16 12:10; Admin Dose 75 MLS/HR; Start 12/10/16 at 09:16 Ondansetron HCl (Zofran Inj) 4 mg Q6H PRN IV NAUSEA AND/OR VOMITING; Start at 09:30 Acetaminophen (Tylenol Tab) 650 mg Q6H PRN PO PAIN LEVEL 1-3 OR FEVER; Start at 09:30 Acetaminophen (Tylenol Supp) 650 mg Q6H PRN [place] PAIN LEVEL 1-3 OR FEVER; Start 12/10/16 at 09:30 Docusate Sodium (Colace) 100 mg Q12H PRN PO CONSTIPATION; Start 12/10/16 at 09: 30 Bisacodyl (Dulcolax) 5 mg DAILY PRN PO CONSTIPATION; Start 12/10/16 at 09:30 Pantoprazole (Protonix Iv) 40 mg DAILY@06 IV ; Start 12/11/16 at 06:00 Morphine Sulfate (morphine) 1 mg Q3H PRN IV PAIN LEVEL 1-3; Start 12/10/16 at 09:30 Morphine Sulfate (morphine) 2 mg Q3H PRN IV PAIN LEVEL 4-7 Last administered on 12/10/16 14:49; Admin Dose 2 MG; Start 12/10/16 at 09:30 Metoclopramide HCl 5 mg 5 mg Q6H PRN IV CONSTIPATION; Start 12/10/16 at 09:30 Levofloxacin/ Dextrose 100 ml @ 100 mls/hr Q24H IVPB Last administered on 12/10 11:36; Admin Dose 100 MLS/HR; Start 12/10/16 at 09:30 Metronidazole (Flagyl 500 Mg (Pmx)) 100 ml @ 100 mls/hr Q8 IVPB Last administered on 12/10/16 14:28; Admin Dose 100 MLS/HR; Start 12/10/16 at 14:00 SULEIMAN VALENZUELA MD Dec 10, 2016 17:27
[2016-12-10] MEDS: ONDANSETRON 4 MG INJ IV PRN (18:32)
[2016-12-10] MEDS ORDERED: DICLOFENAC SODIUM 37.5 MG/ML VIAL IV STA (20:09)
[2016-12-10 22:40] VITALS: TEMP 98.5
[2016-12-11] MEDS: LORAZEPAM 2 MG INJ IV PRN ×2 (00:22→08:36)
[2016-12-11 00:48] VITALS: PULSE 89
[2016-12-11 02:00] VITALS: Ht 177.8 cm; Wt 78.0 kg
[2016-12-11] MEDS: D5W-0.45 NACL + KCL 20 MEQ 1,000 ML IV SCH (02:34)
[2016-12-11 04:14] VITALS: BP 102/58; RESP 18
[2016-12-11] MEDS: metroNIDAZOLE 500 MG/NS (PMX) 100 ML IVPB SCH ×2 (05:30→13:29)
[2016-12-11] MEDS ORDERED: PANTOPRAZOLE 40 MG INJ IV SCH (06:00)
[2016-12-11] MEDS: ONDANSETRON 4 MG INJ IV PRN (07:28)
[2016-12-11] MEDS: morphine 2 MG INJ IV PRN (07:31)
--- NOTE | 2016-12-11 08:04 | CONS ---
Date/Time of Note Date/Time of Note DATE: 12/11/16 TIME: 08:00 Assessment/Plan Assessment/Plan Chief Complaint/Hosp Course Mr. Vasquez is 2 weeks s/p closure of his ileostomy and he presents with 3 days of constipation and 1/2 day of abdominal pain, nausea and vomiting. He underwent a CT scan which is suspicious for an early SBO with the transition point at his ileo-ileostomy. He has been having small BM's overnight. His main complaint is the discomfort from the NGT. He has had minimal NGT output overnight. Recommendations: 1. Clamp NGT, remove if he has low residuals 2. Recommend discontinuing antibiotics (no role in small bowel obstruction) 3. Patient to ambulate and move around as much has tolerated. 4. Continue IVF resuscitation. Problems: Consultation Date/Type/Reason Admit Date/Time Dec 10, 2016 at 08:25 Initial Consult Date 12/10/16 Type of Consultation: Colorectal surgery Reason for Consultation Abdominal pain, nausea, vomiting, small bowel obstruction Referring Provider: GAUDENCIO HIDALGO MD 24 HR Interval Summary Free Text/Dictation Mr. Vasquez reports that he has had a couple of loose BM's with a small amount of flatus. He denies pain other than from the NGT in his throat. Exam/Review of Systems Vital Signs Vitals Vital Signs Date Time Temp Pulse Resp B/P Pulse Ox O2 Delivery O2 Flow Rate FiO2 12/11/16 04:14 97.6 84 18 102/58 98 12/11/16 00:48 Room Air Intake and Output 12/10/16 12/10/16 12/11/16 15:00 23:00 07:00 Intake Total 450 ml Output Total 200 ml 225 ml Balance -200 ml 225 ml Exam Constitutional: alert, oriented, well developed Gastrointestinal: soft, surgical scars (RLQ ileostomy closure site), tender ( minimal generalized "soreness") Results Result Diagram: 12/10/16 0630 12/10/16 0630 Results 24 hrs Laboratory Tests Test 12/10/16 08:37 12/10/16 10:50 Lactic Acid Level 1.5 1.9 Medications Medications Current Medications Potassium Chloride/Dextrose/ Sod Cl (D5-1/2ns + KCl 20 Meq) 1,000 ml @ 75 mls/ hr [id number] IV Last administered on 12/11/16 02:34; Admin Dose 75 MLS/HR; Start 12/10/16 at 09:16 Ondansetron HCl (Zofran Inj) 4 mg Q6H PRN IV NAUSEA AND/OR VOMITING Last administered on 12/10/16 22:46; Admin Dose 4 MG; Start 12/10/16 at 09:30 Acetaminophen (Tylenol Tab) 650 mg Q6H PRN PO PAIN LEVEL 1-3 OR FEVER; Start at 09:30 Acetaminophen (Tylenol Supp) 650 mg Q6H PRN [place] PAIN LEVEL 1-3 OR FEVER; Start 12/10/16 at 09:30 Docusate Sodium (Colace) 100 mg Q12H PRN PO CONSTIPATION; Start 12/10/16 at 09: 30 Bisacodyl (Dulcolax) 5 mg DAILY PRN PO CONSTIPATION; Start 12/10/16 at 09:30 Pantoprazole (Protonix Iv) 40 mg DAILY@06 IV Last administered on 12/11/16 05: 29; Admin Dose 40 MG; Start 12/11/16 at 06:00 Morphine Sulfate (morphine) 1 mg Q3H PRN IV PAIN LEVEL 1-3; Start 12/10/16 at 09:30 Morphine Sulfate (morphine) 2 mg Q3H PRN IV PAIN LEVEL 4-7 Last administered on 12/11/16 07:31; Admin Dose 2 MG; Start 12/10/16 at 09:30 Metoclopramide HCl 5 mg 5 mg Q6H PRN IV CONSTIPATION Last administered on 23:41; Admin Dose 5 MG; Start 12/10/16 at 09:30 Levofloxacin/ Dextrose 100 ml @ 100 mls/hr Q24H IVPB Last administered on 12/10 11:36; Admin Dose 100 MLS/HR; Start 12/10/16 at 09:30 Metronidazole (Flagyl 500 Mg (Pmx)) 100 ml @ 100 mls/hr Q8 IVPB Last administered on 12/11/16 05:30; Admin Dose 100 MLS/HR; Start 12/10/16 at 14:00 Lorazepam (Ativan) 1 mg Q4H PRN IV ANXIETY Last administered on 12/11/16 00:22 ; Admin Dose 1 MG; Start 12/11/16 at 00:30 ALESSIA PAIZ MD Dec 11, 2016 08:04
[2016-12-11 08:30] LABS: ADD SCAN DIFF NO
[2016-12-11] MEDS: LEVOFLOXACIN 500MG/D5W (PMX) 100 ML IVPB SCH (08:36)
[2016-12-11 08:44] LABS: ABNORMAL IP MESSAGE 1; BASOPHILS % 0.2 % (0.0-2.0); EOSINOPHILS # 0.1 10^3/ul (0.0-0.5); EOSINOPHILS % 1.7 % (0.0-7.0); HEMATOCRIT 39.2 % (42.0-52.0); HEMOGLOBIN 12.5 g/dl (14.0-18.0); LYMPHOCYTES # 0.5 10^3/ul (0.8-2.9); LYMPHOCYTES % 11.7 % (15.0-51.0); MEAN CORPUSCULAR HEMOGLOBIN 29.5 pg (29.0-33.0); MEAN CORPUSCULAR HGB CONC 31.9 g/dl (32.0-37.0); MEAN CORPUSCULAR VOLUME 92.5 fl (82.0-101.0); MEAN PLATELET VOLUME 10.4 fl (7.4-10.4); MONOCYTE # 0.5 10^3/ul (0.3-0.9); MONOCYTES % 9.7 % (0.0-11.0); NEUTROPHIL # 3.5 10^3/ul (1.6-7.5); NEUTROPHILS % 76.5 % (39.0-77.0); PLATELET COUNT 175 10^3/UL (140-415); RED BLOOD COUNT 4.24 10^6/ul (4.70-6.10); RED CELL DISTRIBUTION WIDTH 12.8 % (11.5-14.5); WHITE BLOOD COUNT 4.6 10^3/ul (4.8-10.8)
[2016-12-11 08:54] LABS: ALBUMIN 3.2 g/dl (3.3-4.9)
[2016-12-11 08:55] VITALS: BP 104/61; RESP 17
[2016-12-11 08:55] LABS: POTASSIUM 3.4 mmol/L (3.5-5.1)
[2016-12-11 08:57] LABS: ALBUMIN/GLOBULIN RATIO 1.06; CREATININE 1.04 mg/dl (0.61-1.24); TOTAL PROTEIN 6.2 g/dl (6.1-8.1)
[2016-12-11 08:58] LABS: CALCIUM 8.2 mg/dl (8.4-10.2); MAGNESIUM 1.8 mg/dl (1.7-2.5)
--- NOTE | 2016-12-11 10:34 | CONS ---
Date/Time of Note Date/Time of Note DATE: 12/11/16 TIME: 10:29 Assessment/Plan Assessment/Plan Additional Assessment/Plan Assessment: * Abdominal pain Small bowel obstruction(partial) S/P ileostomy reversal S/P Low anterior resection with ileostomy Rectal cancer Plan: * Advance diet per colorectal surgery * continue present management * adequate hydration * Further recommendations depend on clinical course * Pt seen in collaboration with Dr. Faye Consultation Date/Type/Reason Admit Date/Time Dec 10, 2016 at 08:25 Initial Consult Date 12/10/16 Type of Consultation: GI Referring Provider: GAUDENCIO HIDALGO MD 24 HR Interval Summary Free Text/Dictation NG tube dc'd 1 bm in AM Exam/Review of Systems Vital Signs Vitals Vital Signs Date Time Temp Pulse Resp B/P Pulse Ox O2 Delivery O2 Flow Rate FiO2 12/11/16 08:55 98.4 88 17 104/61 98 12/11/16 00:48 Room Air Intake and Output 12/10/16 12/10/16 12/11/16 14:59 22:59 06:59 Intake Total 450 ml Output Total 200 ml 225 ml Balance -200 ml 225 ml Exam Constitutional: alert, oriented, well developed Psych: nl mood/affect, no complaints Head: atraumatic, normocephalic Eyes: EOMI, PERRL, nl conjunctiva, nl lids, nl sclera ENMT: nl external ears & nose, nl lips & teeth, nl nasal mucosa & septum Neck: non-tender, supple Respiratory: clear to auscultation, normal air movement Cardiovascular: nl pulses, regular rate and rhythm Gastrointestinal: distended, nl liver, spleen, soft, tender, No rebound or guarding Musculoskeletal: nl extremities to inspection, nl gait and stance Extremities: normal pulses 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: WILLOW WORKER II-XII intact, nl mental status, nl speech, nl strength Skin: nl turgor, No rash or lesions Lymph: nl lymph nodes Results Result Diagram: 12/11/16 0806 12/11/16 0806 Results 24 hrs Laboratory Tests Test 12/10/16 10:50 12/11/16 08:06 Lactic Acid Level 1.9 White Blood Count 4.6 #L Red Blood Count 4.24 L Hemoglobin 12.5 L Hematocrit 39.2 L Mean Corpuscular Volume 92.5 Mean Corpuscular Hemoglobin 29.5 Mean Corpuscular Hemoglobin Concent 31.9 L Red Cell Distribution Width 12.8 Platelet Count 175 # Mean Platelet Volume 10.4 Neutrophils % 76.5 Lymphocytes % 11.7 L Monocytes % 9.7 Eosinophils % 1.7 Basophils % 0.2 Nucleated Red Blood Cells % 0.0 Neutrophils # 3.5 Lymphocytes # 0.5 L Monocytes # 0.5 Eosinophils # 0.1 Basophils # 0.0 Nucleated Red Blood Cells # 0.0 Sodium Level 140 Potassium Level 3.4 L Chloride Level 106 Carbon Dioxide Level 26 Anion Gap 11 Blood Urea Nitrogen 15 # Creatinine 1.04 Glucose Level 106 # Calcium Level 8.2 L Magnesium Level 1.8 Total Bilirubin 1.0 Direct Bilirubin 0.00 Indirect Bilirubin 1.0 Aspartate Amino Transf (AST/SGOT) 18 Alanine Aminotransferase (ALT/SGPT) 32 Alkaline Phosphatase 46 Total Protein 6.2 # Albumin 3.2 #L Globulin 3.00 Albumin/Globulin Ratio 1.06 Lipase 28 Medications Medications Current Medications Potassium Chloride/Dextrose/ Sod Cl (D5-1/2ns + KCl 20 Meq) 1,000 ml @ 75 mls/ hr [id number] IV Last administered on 12/11/16 02:34; Admin Dose 75 MLS/HR; Start 12/10/16 at 09:16 Ondansetron HCl (Zofran Inj) 4 mg Q6H PRN IV NAUSEA AND/OR VOMITING Last administered on 12/10/16 22:46; Admin Dose 4 MG; Start 12/10/16 at 09:30 Acetaminophen (Tylenol Tab) 650 mg Q6H PRN PO PAIN LEVEL 1-3 OR FEVER; Start at 09:30 Acetaminophen (Tylenol Supp) 650 mg Q6H PRN ND PAIN LEVEL 1-3 OR FEVER; Start 12/10/16 at 09:30 Docusate Sodium (Colace) 100 mg Q12H PRN PO CONSTIPATION; Start 12/10/16 at 09: 30 Bisacodyl (Dulcolax) 5 mg DAILY PRN PO CONSTIPATION; Start 12/10/16 at 09:30 Pantoprazole (Protonix Iv) 40 mg DAILY@06 IV Last administered on 12/11/16 05: 29; Admin Dose 40 MG; Start 12/11/16 at 06:00 Morphine Sulfate (morphine) 1 mg Q3H PRN IV PAIN LEVEL 1-3; Start 12/10/16 at 09:30 Morphine Sulfate (morphine) 2 mg Q3H PRN IV PAIN LEVEL 4-7 Last administered on 12/11/16 07:31; Admin Dose 2 MG; Start 12/10/16 at 09:30 Metoclopramide HCl 5 mg 5 mg Q6H PRN IV CONSTIPATION Last administered on 23:41; Admin Dose 5 MG; Start 12/10/16 at 09:30 Levofloxacin/ Dextrose 100 ml @ 100 mls/hr Q24H IVPB Last administered on 12/11 08:36; Admin Dose 100 MLS/HR; Start 12/10/16 at 09:30 Metronidazole (Flagyl 500 Mg (Pmx)) 100 ml @ 100 mls/hr Q8 IVPB Last administered on 12/11/16 05:30; Admin Dose 100 MLS/HR; Start 12/10/16 at 14:00 Lorazepam (Ativan) 1 mg Q4H PRN IV ANXIETY Last administered on 12/11/16 08:36 ; Admin Dose 1 MG; Start 12/11/16 at 00:30 JUAN MANUEL BHAKTA Dec 11, 2016 10:34
--- NOTE | 2016-12-11 11:10 | PDOCDIS ---
Discharge Instructions CONDITION Patient Condition: Good HOME CARE INSTRUCTIONS: Special Diet: clear liquid and advance as tolerated ACTIVITY: Activity Restrictions: Slowly Increase Activity Rest between Activity Avoid heavy lifting FOLLOW UP/APPOINTMENTS Appointments Follow up with Dr. Cool as out-pt GAUDENCIO HIDALGO MD Dec 11, 2016 11:10
[2016-12-11] MEDS ORDERED: METO5TAB58 PO (11:13)
[2016-12-11] MEDS ORDERED: PANT20TA2 PO (11:13)
[2016-12-11] MEDS ORDERED: HYDR-906 PO (11:13)
[2016-12-11] MEDS ORDERED: ONDA-43 PO (11:13)
[2016-12-11] MEDS ORDERED: POTASSIUM CHLORIDE 20 MEQ POWDER FOR ORAL SOLN PO ONE (11:30)
--- NOTE | 2016-12-11 13:19 | DS ---
DATE OF ADMISSION: 12/10/2016 DATE OF DISCHARGE: 12/11/2016 CONSULTANTS: 1. Dr. Ezra Faye. 2. Dr. Gabriel Cool. PROCEDURE: NG tube placement. DISCHARGE DIAGNOSES: 1. Small-bowel obstruction. 2. Status post ileostomy reversal. 3. Status post low anterior resection and ileostomy. 4. History of rectal cancer. 5. Hyperkalemia. 6. Dehydration. 7. Elevated lactic acid secondary to dehydration. 8. Leukocytosis, resolved. MEDICATIONS: 1. [place]. 2. Reglan. 3. Zofran. 4. Protonix. ALLERGIES: NO KNOWN DRUG ALLERGIES. HOSPITAL COURSE: This is a very pleasant 31-year-old gentleman with a past medical history of recta l cancer in 2014, status post laparoscopic-assisted low anterior resection of the rectum with primar y anastomosis, diverting ileostomy, status post chemotherapy, who on 11/26/2016 had the ileostomy cl osed with resection and anastomosis by Dr. Gabriel Cool and had been doing pretty well. He presente d to [facility] emergency room on 12/10/2016 having 1 day of abdominal pain with nausea and vomiting, worsening of symptoms for several hours. The pain was localized over the incision site a nd anastomosis. He vomited multiple times, which was greenish color. NG tube was placed after posi tive CT of the abdomen demonstrated partial small-bowel obstruction. Dr. Cool was consulted. Also, I consulted patient assessment coordinator for further evaluation. The patient status post NG tube placement had several episodes of bowel movements. He was continued on pain medication and IV fluids. His ab dominal discomfort has improved significantly and this morning the NG tube was removed. I have spok en to Dr. Gabriel Cool regarding starting the patient on a diet, and the patient has been started on a clear liquid diet at this time. I had also consulted patient assessment coordinator regarding his history of rectal cancer for the patient to be evaluated as an outpatient for possible outpatient colonoscopy versus sigmoidoscopy. The patient upon admission was found to have elevated white count of 13.5 and elevated lactic acid 1 3.6, although he was found to be dehydrated with a BUN of 25, creatinine 1.13. He was started on IV antibiotics during the course of the emergency room and was continued on IV fluids during the cours e of the hospital stay. Potassium was repleted in the ER. This morning his potassium was 3.4, and was repleted with oral potassium chloride. At this time, the patient is medically stable to be disc harged home after he tolerates his oral intake. He will follow up with patient assessment coordinator and color ectal surgeon as an outpatient. Labs: Sodium 140, potassium 3.4, chloride 103, bicarbonate 26, BUN 15, creatinine 1.04, glucose 106, calcium 8.2. LFTs are within normal limits. Albumin 3.2, lipase 2.8. WBC 4.3, hemoglobin 12.5, hematocrit 39.2, platelets 175. CONDITION AT TIME OF DISCHARGE: Stable. Dictated By: GAUDENCIO CARMONA/DARLEEN Conf#: [id number] DID#: [id number]
[2016-12-11 20:40] VITALS: BP 98/61; RESP 18
== END 2016-12-11 21:00 | disposition home or self-care (01) | DRG 872 ==
LOC: E/R 06:04 → PP2 08:25
PROVIDERS: ADMIT Hospitalist; ATTEND Hospitalist
DX: A41.9 Sepsis, unspecified organism (principal); K56.69 Other intestinal obstruction; E87.6 Hypokalemia; E86.0 Dehydration; R74.0 Nonspecific elevation of levels of transaminase and lactic acid dehydrogenase [LDH]; Z98.0 Intestinal bypass and anastomosis status; Z93.2 Ileostomy status; Z85.048 Personal history of other malignant neoplasm of rectum, rectosigmoid junction, and anus; Z92.21 Personal history of antineoplastic chemotherapy
CPT/HCPCS: 36415; 74177; 80053; 83605; 83690; 83735; 84484; 85025; 85610; 85730; 87040; 87081; 96365; 96366; 96375; 96376; C9113; J1170; J1956; J2060; J2270; J2405; J2543; J2765; J3480; J7030; J7042; Q9967

== ENCOUNTER 2017-08-25 11:42 | Day surgery (SDC) | END 2017-08-25 18:08 | disposition home or self-care (01) ==

== ENCOUNTER 2017-10-13 14:53 | Emergency (ER) | END 2017-10-13 23:30 | disposition home or self-care (01) ==

== ENCOUNTER 2018-12-16 19:04 | Inpatient (IN) | payer BC ==
[~2018-12-16] VITALS: Ht 185.4 cm; Wt 64.8 kg
[2018-12-16 20:15] VITALS: Ht 185.4 cm; Wt 64.8 kg
[2018-12-16 20:30] VITALS: BP 110/63; PULSE 80; RESP 18
[2018-12-16] MEDS ORDERED: NACL 0.9% 3 ML SYG IV SCH (21:00)
[2018-12-16] MEDS ORDERED: ONDANSETRON 4 MG INJ IV PRN (21:00)
[2018-12-16] MEDS: FAMOTIDINE 20 MG INJ IV SCH (21:05)
[2018-12-16] MEDS: DEXTROSE 5%-0.45% NACL 1,000 ML IV SCH (21:06)
[2018-12-16] MEDS: KETOROLAC 30 MG INJ IV PRN (21:28)
--- NOTE | 2018-12-16 23:06 | HP ---
Date/Time of Note Date/Time of Note DATE: 12/16/18 TIME: 23:06 Assessment/Plan VTE Prophylaxis Risk score (from Ns)>0 risk: 3 SCD applied (from Nsg): Yes Pharmacological prophylaxis: heparin Lines/Catheters IV [facility]ter [facility]from [facility] [place] Assessment/Plan Assessment/Plan 33-year-old male with a history of colon cancer diagnosed in 2014, status post chemo and radiation followed by anterior resection of his rectum with primary colorectal anastomosis and diverting loop ileostomy with subsequent closure of ileostomy in November 2016. Patient presented on outside hospital complaining of abdominal pain with CT concerning for SBO. Patient had multiple bouts of SBO following his initial surgery, which were all conservatively managed PLAN -Keep n.p.o. with IV fluid -NG tube to low intermittent suction -Pain meds and antiemetics as needed -Surgical consult. (His previous surgery was done by Dr. Cool) HPI/ROS Admit Date/Time Admit Date/Time December 16, 2018 at 19:04 Hx of Present Illness This is a 33-year-old male with a history of rectal cancer diagnosed in April 2015 status post chemo and radiation completed in July 2015. In November 2015 he underwent low anterior resection of his rectum with primary colorectal anastomosis and diverting loop ileostomy. Patient has had several bouts of small bowel obstructions, all of which were conservatively managed. He is diverting ileostomy was closed in November 2016. In August 2017, he underwent a colonoscopy, which showed no neoplasm. Today, patient initially presented to an outside hospital complaining of abdominal pain x 1 day. Denied N/V. he said he sometimes gets constipated since his surgery, but nothing acutely. Basic labs including liver enzymes and lipase were within acceptable range. CT abdomen/pelvis shows the followin. There are 2 segments of small bowel in the pelvis which are distended and there is fecal material noted. This is in close approximation to regions of an anastomotic sutures. Remainder of the small bowel segments however are normal in caliber. This raises possibility of closed loop bowel obstruction. 2 small free fluid. 3. No evidence of intraperitoneal gas Patient was transferred to [facility] for insurance reason. PMH/Family/Social Past Medical History Medications Current Medications Dextrose/Sodium Chloride 1,000 ml @ 100 mls/hr Q10H IV Last administered on 12/16/18at 21:06; Admin Dose 100 MLS/HR; Start 12/16/18 at 20:38 IV Flush (NS 3 ml) 3 ml PER PROTOCOL IV ; Start 12/16/18 at 21:00 Ondansetron HCl (Zofran Inj) 4 mg Q6H PRN IV NAUSEA/VOMITING Last administered on 12/16/18at 21:05; Admin Dose 4 MG; Start 12/16/18 at 21:00 Famotidine (Pepcid Iv) 20 mg Q12 IV Last administered on 12/16/18at 21:05; Admin Dose 20 MG; Start 12/16/18 at 21:00 Ketorolac Tromethamine (Toradol) 30 mg Q6H PRN IV PAIN LEVEL 1-3 Last administered on 12/16/18at 21:28; Admin Dose 30 MG; Start 12/16/18 at 21:30; Stop 12/19/18 at 21:29 Coded Allergies: codeine (Verified Allergy, Unknown, rashes, 12/16/18) Past Surgical History Past Surgical Hx: other Family History Significant Family History: no pertinent family hx Social History Smoking Status: Never smoker Exam/Review of Systems Vital Signs Vitals Vital Signs Date Temp Pulse Resp B/P (MAP) Pulse Ox O2 O2 Flow FiO2 Time Delivery Rate 12/16/18 97.4 80 18 110/63 98 20:30 (79) Exam Exam Past Surgical Hx: other (see hpi) Family History Significant Family History: no pertinent family hx Social History Alcohol Use: heavy (2 beers a day) Smoking Status: Never smoker Drug Use: none Exam Constitutional: other (no acute distress) ENMT: nl external ears & nose Neck: supple, non-tender Respiratory: normal air movement Cardiovascular: nl pulses Gastrointestinal: soft Extremities: normal pulses RASHEEDA WADE MD December 16, 2018 23:06
[2018-12-17 02:00] VITALS: BP 120/62; PULSE 82; RESP 18
[2018-12-17] MEDS: DEXTROSE 5%-0.45% NACL 1,000 ML IV SCH ×2 (06:38→08:29)
[2018-12-17 08:00] VITALS: BP 101/59; PULSE 71; RESP 17
[2018-12-17] MEDS: FAMOTIDINE 20 MG INJ IV SCH ×2 (08:25→20:10)
[2018-12-17] MEDS ORDERED: ACETAMINOPHEN 1000MG/100ML IV 100 ML IVPB PRN (09:00)
[2018-12-17] MEDS: KETOROLAC 30 MG INJ IV PRN (09:40)
--- NOTE | 2018-12-17 10:21 | CONS ---
Assessment/Plan Assessment/Plan Assessment/Plan (Daily) 33YO Man h/o rectal CA s/p LAR and DLI, reversal of DLI, SBO in past reports upper abd pain and nausea. Had CT revealing "possible closed loop obstruction", however, proximal small bowel is normal and there is stool and gas in colon. And VS WNL and WBC 7. Pt reports no abdominal sx at this time and NGT is putting out spit. On exam, appears well, abdomen is benign and pt had BM and flatus this AM. Unlikely closed loop obstruction, showing no signs of obstruction now. Will clamp NGT and put back to suction in 4 hours. If pt OK and no output, pull NGT. Will then start sips of clears. If pt becomes distended, NV, recurrent abd pain/F/C, will reevaluate. D/W Dr. Cool, Dr. Amado, pt and family. Consultation Date/Type/Reason Admit Date/Time December 16, 2018 at 19:04 Date of Consultation: December 17, 2018 Type of Consult colorectal surgery Reason for Consultation SBO Date/Time of Note DATE: 12/17/18 TIME: 10:14 Hx of Present Illness 33YO Man h/o rectal CA s/p LAR and DLI, s/p reversal of DLI. Had SBO in past, resolved spontaneously. Pt reports ~ 24 hours ago had upper abd pain and nausea. No bilious emesis. Reports did not feel like SBO in past. Went to OSH, had CT revealing normal small bowel, some distended distal small bowel with fecalization, and air and gas in colon. Pt denies any pelvic pain. Reports having BM and flatus this AM. At bedside, pt denies abd pain, NV/F/C/SOB/CP. NGT is putting out spit, no bile. Respiratory: no complaints Cardiovascular: no complaints Gastrointestinal: no complaints Past Medical History Home Meds No Active Prescriptions or Reported Meds Medications Current Medications Dextrose/Sodium Chloride 1,000 ml @ 100 mls/hr Q10H IV Last administered on 12/17/18at 08:29; Admin Dose 100 MLS/HR; Start 12/16/18 at 20:38 IV Flush (NS 3 ml) 3 ml PER PROTOCOL IV ; Start 12/16/18 at 21:00 Ondansetron HCl (Zofran Inj) 4 mg Q6H PRN IV NAUSEA/VOMITING Last administered on 12/16/18at 21:05; Admin Dose 4 MG; Start 12/16/18 at 21:00 Famotidine (Pepcid Iv) 20 mg Q12 IV Last administered on 12/17/18at 08:25; Admin Dose 20 MG; Start 12/16/18 at 21:00 Ketorolac Tromethamine (Toradol) 30 mg Q6H PRN IV PAIN LEVEL 1-3 Last administered on 12/17/18at 09:40; Admin Dose 30 MG; Start 12/16/18 at 21:30; Stop 12/19/18 at 21:29 Acetaminophen 100 ml @ 400 mls/hr Q6H PRN IVPB pain; Start 12/17/18 at 09:00; Stop 12/18/18 at 08:59 Allergies: Coded Allergies: codeine (Verified Allergy, Unknown, rashes, 12/16/18) Past Surgical History Past Surgical Hx: other Social History Smoking Status: Never smoker Exam/Review of Systems Exam Vitals Vital Signs Date Temp Pulse Resp B/P (MAP) Pulse Ox O2 O2 Flow FiO2 Time Delivery Rate 12/17/18 98.0 71 17 101/59 98 Room Air 08:00 (73) Intake and Output 12/16/18 12/16/18 12/17/18 1515:00 23:00 07:00 IntakeIntake Total 800 ml OutputOutput Total 300 ml 600 ml BalanceBalance -300 ml 200 ml Constitutional: alert Respiratory: clear to auscultation Cardiovascular: regular rate and rhythm Gastrointestinal: soft (NT/NM/ND, wound C/D/I, no peritonitis) Results Result Diagram: 12/17/18 0520 12/17/18 0520 Results 24hrs Laboratory Tests Test 12/17/18 05:20 White Blood Count 7.0 # Red Blood Count 4.22 L Hemoglobin 12.8 L Hematocrit 37.4 L Mean Corpuscular Volume 88.6 Mean Corpuscular Hemoglobin 30.3 Mean Corpuscular Hemoglobin Concent 34.2 Red Cell Distribution Width 11.1 L Platelet Count 146 Mean Platelet Volume 11.2 H Immature Granulocytes % 0.300 Neutrophils % 65.9 Lymphocytes % 24.3 Monocytes % 7.8 Eosinophils % 1.4 Basophils % 0.3 Nucleated Red Blood Cells % 0.0 Immature Granulocytes # 0.020 Neutrophils # 4.6 Lymphocytes # 1.7 Monocytes # 0.5 Eosinophils # 0.1 Basophils # 0.0 Nucleated Red Blood Cells # 0.0 Sodium Level 139 Potassium Level 3.5 Chloride Level 107 Carbon Dioxide Level 24 Anion Gap 8 Blood Urea Nitrogen 18 Creatinine 0.74 Est Glomerular Filtrat Rate mL/min > 60 Glucose Level 100 Calcium Level 8.8 Phosphorus Level 4.6 Magnesium Level 1.7 Total Bilirubin 1.1 Direct Bilirubin 0.00 Indirect Bilirubin 1.1 Aspartate Amino Transf (AST/SGOT) 14 L Alanine Aminotransferase (ALT/SGPT) 26 Alkaline Phosphatase 104 Total Protein 5.7 L Albumin 3.1 L Globulin 2.60 Albumin/Globulin Ratio 1.19 Medications Medication Current Medications Dextrose/Sodium Chloride 1,000 ml @ 100 mls/hr Q10H IV Last administered on 12/17/18at 08:29; Admin Dose 100 MLS/HR; Start 12/16/18 at 20:38 IV Flush (NS 3 ml) 3 ml PER PROTOCOL IV ; Start 12/16/18 at 21:00 Ondansetron HCl (Zofran Inj) 4 mg Q6H PRN IV NAUSEA/VOMITING Last administered on 12/16/18at 21:05; Admin Dose 4 MG; Start 12/16/18 at 21:00 Famotidine (Pepcid Iv) 20 mg Q12 IV Last administered on 12/17/18at 08:25; Admin Dose 20 MG; Start 12/16/18 at 21:00 Ketorolac Tromethamine (Toradol) 30 mg Q6H PRN IV PAIN LEVEL 1-3 Last administered on 12/17/18at 09:40; Admin Dose 30 MG; Start 12/16/18 at 21:30; Stop 12/19/18 at 21:29 Acetaminophen 100 ml @ 400 mls/hr Q6H PRN IVPB pain; Start 12/17/18 at 09:00; Stop 12/18/18 at 08:59 RASHEEDA SANCHEZ M.D. December 17, 2018 10:21
--- NOTE | 2018-12-17 10:28 | PN ---
Date/Time of Note Date/Time of Note DATE: 12/17/18 TIME: 10:28 Objective Vitals Vital Signs Date Temp Pulse Resp B/P (MAP) Pulse Ox O2 O2 Flow FiO2 Time Delivery Rate 12/17/18 98.0 71 17 101/59 98 Room Air 08:00 (73) Intake and Output 12/16/18 12/16/18 12/17/18 1515:00 23:00 07:00 IntakeIntake Total 800 ml OutputOutput Total 300 ml 600 ml BalanceBalance -300 ml 200 ml Results Result Diagram: 12/17/1851912/17/18 05 Medications Medications Current Medications Dextrose/Sodium Chloride 1,000 ml @ 100 mls/hr Q10H IV Last administered on 12/17/18at 08:29; Admin Dose 100 MLS/HR; Start 12/16/18 at 20:38 IV Flush (NS 3 ml) 3 ml PER PROTOCOL IV ; Start 12/16/18 at 21:00 Ondansetron HCl (Zofran Inj) 4 mg Q6H PRN IV NAUSEA/VOMITING Last administered on 12/16/18at 21:05; Admin Dose 4 MG; Start 12/16/18 at 21:00 Famotidine (Pepcid Iv) 20 mg Q12 IV Last administered on 12/17/18at 08:25; Admin Dose 20 MG; Start 12/16/18 at 21:00 Ketorolac Tromethamine (Toradol) 30 mg Q6H PRN IV PAIN LEVEL 1-3 Last administered on 12/17/18at 09:40; Admin Dose 30 MG; Start 12/16/18 at 21:30; Stop 12/19/18 at 21:29 Acetaminophen 100 ml @ 400 mls/hr Q6H PRN IVPB pain; Start 12/17/18 at 09:00; Stop 12/18/18 at 08:59 Phenol (Cepastat Lozenge) 1 lozenge Q1H PRN MT throat discomfort; Start 12/17/18 at 10:30 VTE Prophylaxis Risk score (from Nsg)>0 risk: 3 SCD applied (from Nsg): Yes Lines/Catheters IV Catheter Type: Delgado in Place: No Assessment/Plan Hospital Course Subjective Patient feels significantly better than the other hospital, minimal to no abdominal pain will area, Patient does complain of discomfort starting in the nasal area that goes down his throat to his chest,this pain is new ever since p utting in the NG tube. Objective Physical exam General: Patient is laying in bed and answers questions appropriately Mentation: Patient is alert and oriented 4, Head: Normocephalic atraumatic Eyes: EOMI, pupils reactive to light Neck: Supple, nontender, midline Respiratory: Clear to auscultation bilaterally Cardiovascular: regular rate, no obvious murmurs Gastrointestinal: Mildly-tender to palpation, bowel sounds heard. 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: Moves all extremities spontaneously Skin: No new skin lesions Assessment and plan Small bowel obstruction questionable -Patient's general surgeon group already saw patient, does not believe this is an active small bowel obstruction however will take conservative measures for now, will clamp NG tube and progress from there, explicit instructions given to nursing at bedside from general surgeon -Dr. Cool group on board History of rectal cancer status post colorectal anastomosis and diverting loop ileostomy with subsequent closure of ileostomy in November 2016. -Patient surgeon, Dr. Amado group on board Nose, throat, chest wall pain -Trope will be ordered however this is very likely secondary to the effects of the NG tube, explained to patient, patient also feels this is more of an NG tube pain, will offer sepsis that lozenges as able, hopeful removal of NG tube as soon as possible Nausea and vomiting -Mild at the other facility, no to nausea vomiting currently, monitor Disposition -We will advance to diet only when okay with general surgeon, IV fluids for now. REGGIE AMADO December 17, 2018 10:28
[2018-12-17] MEDS ORDERED: CEPASTAT LOZENGE MT PRN (10:30)
[2018-12-17 14:00] VITALS: BP 107/58; PULSE 75; RESP 17
[2018-12-17 20:00] VITALS: BP 107/62; PULSE 79; RESP 18
[2018-12-18 02:00] VITALS: BP 102/59; PULSE 66; RESP 19
[2018-12-18] MEDS: DEXTROSE 5%-0.45% NACL 1,000 ML IV SCH (02:38)
[2018-12-18 08:29] VITALS: BP 100/61; PULSE 72; RESP 17
[2018-12-18] MEDS: FAMOTIDINE 20 MG INJ IV SCH (08:29)
--- NOTE | 2018-12-18 09:31 | PN ---
Date/Time of Note Date/Time of Note DATE: 12/18/18 TIME: 09:30 Objective Vitals Vital Signs Date Temp Pulse Resp B/P (MAP) Pulse Ox O2 O2 Flow FiO2 Time Delivery Rate 12/18/18 97.6 72 17 100/61 98 Room Air 08:29 (74) Intake and Output 12/17/18 12/17/18 12/18/18 1515:00 23:00 07:00 IntakeIntake Total 950 ml 1200 ml OutputOutput Total 20 ml BalanceBalance -20 ml 950 ml 1200 ml Results Result Diagram: 12/18/1822 12/18/18821 Medications Medications Current Medications Dextrose/Sodium Chloride 1,000 ml @ 100 mls/hr Q10H IV Last administered on 12/17/18 08:29; Admin Dose 100 MLS/HR; Start 12/16/18 at 20:38 IV Flush (NS 3 ml) 3 ml PER PROTOCOL IV ; Start 12/16/18 at 21:00 Ondansetron HCl (Zofran Inj) 4 mg Q6H PRN IV NAUSEA/VOMITING Last administered on 12/16/18 21:05; Admin Dose 4 MG; Start 12/16/18 at 21:00 Famotidine (Pepcid Iv) 20 mg Q12 IV Last administered on 12/18/18 08:29; Admin Dose 20 MG; Start 12/16/18 at 21:00 Ketorolac Tromethamine (Toradol) 30 mg Q6H PRN IV PAIN LEVEL 1-3 Last administe red on 12/17/18 09:40; Admin Dose 30 MG; Start 12/16/18 at 21:30; Stop 12/19/18 at 21:29 Phenol (Cepastat Lozenge) 1 lozenge Q1H PRN MT throat discomfort Last administered on 12/17/18 10:44; Admin Dose 1 LOZENGE; Start 12/17/18 at 10:30 VTE Prophylaxis Risk score (from Nsg)>0 risk: 3 SCD applied (from Nsg): Yes Lines/Catheters IV Catheter Type: Delgado in Place: No Assessment/Plan Hospital Course Patient is a male with past medical history significant for rectal can cer status post surgical removal and history of colostomy that was also removed as well as hyperthyroidism who presents to [facility] as a transfer for possible SBO. Patient was seen by his colorectal surgeons partner and at the time patient had minimal to no pain and CTs were reviewed that did show possible closed loop obstruction. However symptomatically patient was doing very well and surgeon stated that given his read of the CT which were stable, no nausea, no vomiting, no abdominal pain no NG tube output except for spit, patient is clear to be discharged as long as tolerating oral intake. Patient doing very well on sandwiches and drinks, had bowel movement yesterday, absolutely, no symptoms at this time and will follow up with colorectal surgeon. Patient is to continue all home medications which include medications for his hyperthyroidism of propanolol and methimazole but will be discharged today as patient is anxious to go back to work. Discharge diagnosis Small bowel obstruction, resolved Abdominal pain, resolved Nausea vomiting, resolved Hyperthyroidism, chronic REGGIE MCNEIL December 18, 2018 09:30
--- NOTE | 2018-12-18 09:32 | PDOCDIS ---
Discharge Instructions CONDITION [id number] Patient Condition: [id number] Stable FOLLOW UP/APPOINTMENTS Follow-up Plan Continue all home medications. Please follow-up with Dr. Cool this week as soon as possible. Please continue follow-up with your avionics repair technician as well as primary care provider. Please return to the ED if symptoms return. REGGIE MCNEIL December 18, 2018 09:32
--- NOTE | 2018-12-18 09:33 | DS ---
Date/Time of Note Date/Time of Note DATE: 12/18/18 TIME: 09:33 Discharge Summary Admission/Discharge Info Admit Date/Time December 16, 2018 at 19:04 Discharge Date/Time Patient Condition: Stable Hospital Course Patient is a male with past medical history significant for rectal cancer status post surgical removal and history of colostomy that was also removed as well as hyperthyroidism who presents to [facility] as a transfer for possible SBO. Patient was seen by his colorectal surgeons partner and at the time patient had minimal to no pain and CTs were reviewed that did show possible closed loop obstruction. However symptomatically patient was doing very well and surgeon stated that given his read of the CT which were stable, no nausea, no vomiting, no abdominal pain no NG tube output except for spit, patient is clear to be discharged as long as tolerating oral intake. Patient doing very well on sandwiches and drinks, had bowel movement yesterday, absolutely, no symptoms at this time and will follow up with colorectal surgeon. Patient is to continue all home medications which include medications for his hyperthyroidism of propanolol and methimazole but will be discharged today as patient is anxious to go back to work. Discharge diagnosis Small bowel obstruction, resolved Abdominal pain, resolved Nausea vomiting, resolved Hyperthyroidism, chronic Home Meds No Active Prescriptions or Reported Meds Follow-up Plan Continue all home medications. Please follow-up with Dr. Cool this week as soon as possible. Please continue follow-up with your test architect as well as primary care provider. Please return to the ED if symptoms return. Primary Care Provider Not On Staff Doctor Time spent on discharge: > 30 minutes Pending Labs Laboratory Tests Test 12/17/18 10:34 12/18/18 08:22 Troponin I < 0.012 ng/ml (0.000-0.120) White Blood Count 4.6 10^3/ul (4.8-10.8) Red Blood Count 4.32 10^6/ul (4.70-6.10) Hemoglobin 12.9 g/dl (14.0-18.0) Hematocrit 38.4 % (42.0-52.0) Mean Corpuscular Volume 88.9 fl (82.0-101.0) Mean Corpuscular 29.9 pg (29.0-33.0) Hemoglobin Mean Corpuscular 33.6 g/dl (32.0-37.0) Hemoglobin Concent Red Cell Distribution 11.3 % (11.5-14.5) Width Platelet Count 141 10^3/UL (140-415) Mean Platelet Volume 10.5 fl (7.4-10.4) Immature Granulocytes % 0.200 % (0.001-0.429) Neutrophils % 56.0 % (39.0-77.0) Lymphocytes % 33.5 % (15.0-51.0) Monocytes % 7.1 % (0.0-11.0) Eosinophils % 3.0 % (0.0-7.0) Basophils % 0.2 % (0.0-2.0) Nucleated Red Blood Cells 0.0 /100WBC (0.0-0.0) % Immature Granulocytes # 0.010 10^3/ul (0.0-0.031) Neutrophils # 2.6 10^3/ul (1.6-7.5) Lymphocytes # 1.6 10^3/ul (0.8-2.9) Monocytes # 0.3 10^3/ul (0.3-0.9) Eosinophils # 0.1 10^3/ul (0.0-0.5) Basophils # 0.0 10^3/ul (0.0-0.1) Nucleated Red Blood Cells 0.0 10^3/ul (0.0-0.0) # Sodium Level 140 mmol/L (135-144) Potassium Level 3.9 mmol/L (3.5-5.1) Chloride Level 110 mmol/L (97-110) Carbon Dioxide Level 24 mmol/L (21-31) Anion Gap 6 (5-13) Blood Urea Nitrogen 12 mg/dl (7-20) Creatinine 0.73 mg/dl (0.61-1.24) Est Glomerular Filtrat > 60 mL/min (>60) Rate mL/min Glucose Level 135 mg/dl (70-220) Calcium Level 9.1 mg/dl (8.4-10.2) REGGIE MCNEIL December 18, 2018 09:33
== END 2018-12-18 10:20 | disposition home or self-care (01) | DRG 390 ==
LOC: PP2 19:04
PROVIDERS: ADMIT Internal Medicine; ATTEND Internal Medicine
DX: K56.609 Unspecified intestinal obstruction, unspecified as to partial versus complete obstruction (principal); E03.9 Hypothyroidism, unspecified; Z85.048 Personal history of other malignant neoplasm of rectum, rectosigmoid junction, and anus; R07.9 Chest pain, unspecified
CPT/HCPCS: 71045; 80048; 80053; 83735; 84100; 84484; 85025; A4310; J1885; J2405; J7042